=== PATIENT | male | born 1975 | race Two or more races ===

== ENCOUNTER 2018-10-17 00:07 | Observation (INO) | payer SELFPAY ==
[2018-10-17] VITALS (8 sets, daily range): BP systolic 111–146; BP diastolic 69–104; PULSE 70–114; RESP 16–20; TEMP 36.7–36.8; O2SAT 94–97; BMI 30.7; BMI 29.6
--- NOTE | 2018-10-17 00:08 | ED.RN ---
CALLED FOR EKG PER RN REQUEST, NO OLD EKGS IN MUSE
--- NOTE | 2018-10-17 00:22 | RAD_ITS ---
HISTORY: CHEST PAIN THAT STARTED YESTERDAY.C/O NAUSEA AFTER DRINKING LOTS OF FLUID EXAM: XR Chest 1 View: Portable COMPARISON: CT abdomen and pelvis 02/26/2017 FINDINGS: EKG leads in place. Limited portable exam with expiratory phase. Elevation of the right and left hemidiaphragms with hypoaeration and atelectasis of the lung bases. The heart appears normal in size. Pulmonary vascularity shows no overt congestion. No significant pleural effusion. No pneumothorax. The bony thorax appears intact. Prominent gas-filled stomach. RAD/Chest 1 View (Portable) IMPRESSION: 1. Limited expiratory phase exam with bibasilar hypoaeration and atelectatic change 2. No vascular congestion or pulmonary edema identified. 3. Gas-filled stomach. at 0056 Reported and signed by: Mulugeta Hayward MD Electronically Signed: Mulugeta Hayward, at 0:54 EST Tel , Service support ,
--- NOTE | 2018-10-17 00:22 | EKG12_ITS ---
Test Reason : CP Blood Pressure : / mmHG Vent. Rate : 112 BPM Atrial Rate : 112 BPM P-R Int : 158 ms QRS Dur : 090 ms QT Int : 332 ms P-R-T Axes : 032 019 036 degrees QTc Int : 453 ms Sinus tachycardia Otherwise normal ECG Confirmed by ANDRZEJ SPRINGER, MITA ([id number]), features editor FREDERIC TIPTON ([id number]) on 10/20/2018 10:44:57 AM Referred By: Confirmed By:MITA DONNELLY MD
--- NOTE | 2018-10-17 00:23 | ED.VISSUMM ---
- ER Visit Summary Date of Service: 10/17/18 Chief Complaint: Chest pain History of Present Illness: The patient is a 43 M presenting with chest pain. Patient states this started last night. He has had intermittent waxing and waning chest pain today. It is associated with shortness of breath. He has had a mild cough. He denies nausea or vomiting. Denies diaphoresis. He did have travel to both [place] and [place] within the last 2 weeks. He denies other PE/DVT risk factors. He states the pain worsened with exertion today. He has a family history of early heart disease. Denies other CAD risk factors. Physical Examination: Vitals are stable. Patient is afebrile. Alert no acute distress. HEENT exam is unremarkable. Neck is supple. Lungs are clear and equal bilaterally. Heart is regular rate and rhythm. Abdomen is soft nontender nondistended. Extremities are unremarkable. Skin is warm and dry. No focal neurologic deficit. Remainder of exam is unremarkable. Emergency Department Course and Treatment: Patient was given aspirin on arrival. He was given morphine Zofran IV. EKG sinus tachycardia rate of 112. CBC shows white count 12.8. Chemistries show glucose 243. Troponin is negative. D-dimer negative. Chest xray shows limited expiratory phase exam with bibasilar hypoaeration and atelectatic change. No vascular congestion or pulmonary edema identified. Gas-filled stomach. Patient had exertional chest pain. He is pain-free on reevaluation. Discussed with the hospitalist for observation. Disposition: Observation Impression: Chest pain This note was generated with [employer] dictation software. It may contain incorrect words, spelling, and punctuation that were not noted in review of the chart prior to signing ED Disposition - Plan for ED Patient: Chief Complaint: Chest Pain
[2018-10-17] MEDS: Aspirin 81 MG TAB.CHEW 324 MG PO (00:33)
[2018-10-17] MEDS: Ondansetron 4 MG/2 ML Vial IV (00:34)
[2018-10-17] MEDS: Morphine 4 MG/ML Syringe IV (00:35)
[2018-10-17 00:37] LABS: Absolute Lymphocyte Count 3.03 X10^3/ul (0.83-4.51); Absolute Neutrophil Count 8.4 X10^3/uL (2.0-7.7); Basophil# 0.04 X10^3/uL; Basophil% 0.3 % (0-1); Eosinophil# 0.16 X10^3/uL; Eosinophils% 1.3 % (0-5); Hematocrit 47.3 % (40-54); Hemoglobin 16.3 g/dl (13.0-16.5); Lymphocyte # 3.03 X10^3/ul (4.0); Lymphocyte % 23.7 % (19-41); Mean Corp Hgb Conc 34.5 g/gl (32-36); Mean Corpuscular Hgb 29.6 pg (27.0-32.0); Mean Corpuscular Volume 85.8 fL (80-94); Mean Platelet Vol. 9.1 fl (6.2-12.0); Monocyte# 1.08 X10^3/uL; Monocyte% 8.5 % (0-10); Neutrophil # 8.42 X10^3/uL (2.7-7.7); Neutrophil % 65.8 % (47-70); Platelet Count 378 K/mm3 (150-450); RBC Distribution Width CV 13.3 % (11.6-14.6); RBC Distribution Width SD 41.9 fl (35.1-43.9); Red Blood Count 5.51 M/mm3 (4.6-6.2); White Blood Count 12.8 K/mm3 (4.4-11.0)
[2018-10-17 00:39] LABS: POSITIVE COUNT NO; POSITIVE DIFFERENTIAL NO; POSITIVE MORPHOLOGY NO
[2018-10-17 00:43] LABS: Anion Gap 7 (5-15); BUN 7 mg/dL (7-18); BUN/Creat Ratio 6.9 RATIO (10-20); Calcium,Total 9.4 mg/dL (8.5-10.1); Chloride 104 mmol/L (98-107); Creatinine, Serum 1.01 mg/dL (0.70-1.30); EST Glomerular Filtration Rate 86 mL/min (>60); Est Glom Filt Rate - Afr Amer 104 mL/min (>60); Estimated Creatinine Clearance 101.48 ml/min; Glucose 243 mg/dL (74-106); Potassium 3.5 mmol/L (3.5-5.1); Sodium Level 140 mmol/L (136-145)
[2018-10-17 00:58] LABS: D-Dimer Quantitative (DVT/PE) < 0.27 FEU/ug/m (0.27-0.49)
--- NOTE | 2018-10-17 01:32 | PCM.HP.STD ---
Problem List (1) Chest pain Status: Acute Qualifiers: Chest pain type: unspecified Qualified Code(s): R07.9 - Chest pain, unspecified History of Present Illness Date of Admission: 10/17/18 Chief Complaint: chest pain The patient is a 43 year old male who presents to the ER with chest pain. This occurred last evening when he was going to bed and the pain was on the left side of his chest and did not radiate anywhere. The pain is not reproducible and is made worse with deep inspiration. He does feel short of breath but denies nausea and or vomiting. The patient has travelled in the past two weeks however, D-Dimer is negative at this time. The pain has been made worse with exertion. He has a family history of heart disease (paternal). He denies other coronary risk factors but admits he does not follow with a PCP. Past Medical History Allergies No Known Allergies Allergy (Verified 10/17/18 00:12) Home Medications: Ambulatory Orders Medication Instructions Recorded NK 10/17/18 Smoking Status: Never smoker - *Family History Paternal History Items: Heart Disease Review of Systems Constitutional: Denies: Chills, Fever, Weight Change HEENT: Denies: Head Aches, Sinus Congestion, Sinus Drainage Cardiovascular: Reports: Chest Pain. Denies: Palpitations Respiratory: Reports: Shortness of Breath. Denies: Cough, Shortness of breath at rest, Sputum production Gastrointestinal: Denies: Abdominal Pain, Nausea, Vomiting Genitourinary: Denies: Dysuria Musculoskeletal: Denies: Joint Pain, Joint Tenderness Skin: Denies: Rash, Wounds Neurological: Denies: Numbness, Tingling, Focal weakness Psychiatric: Denies: Anxiety, Depression, Homicidal Ideations, Suicidal Ideations Hematologic/ Lymphatic: Denies: Easy Bruising, Easy Bleeding VTE Information - Inpt Only VTE Present on Admission: No VTE Mechan Device Prophylaxis: None VTE Pharm Prophylaxis ordered?: No Patient Problems: Active and Suspected Problems Chest pain (Acute) - Physical Exam General: Alert, Oriented x3, Cooperative HEENT: Atraumatic, Normocephalic Neck: Supple Lungs: Clear to auscultation, Normal air movement Cardiovascular: Regular rate, Regular Rhythm, Normal S1, Normal S2, No murmurs Abdomen: Bowel Sounds Present Extremities: No edema Skin: No rashes Musculoskeletal: No Tenderness to Palpation of Joints or Extremities Neurological: Neuro grossly intact Psych/Mental Status: Normal Affect, Appropriate Vital Signs Temp Pulse Resp BP Pulse Ox 98.2 F 97 20 H 139/101 H 97 10/17/18 00:08 10/17/18 01:08 10/17/18 01:08 10/17/18 01:08 10/17/18 01:08 Oxygen Flow Rate (L/min) 2 Oxygen Delivery Method Nasal Cannula Weight: 219 lb 12.814 oz Body Mass Index (BMI) 30.7 Laboratory Tests Past 24 Hrs 10/17/18 10/17/18 10/17/18 00:13 00:13 00:13 WBC 12.8 H RBC 5.51 Hgb 16.3 Hct 47.3 MCV 85.8 MCH 29.6 MCHC 34.5 RDW 13.3 RDW Differential 41.9 Plt Count 378 MPV 9.1 Immature Gran % (Auto) 0.400 Neut % (Auto) 65.8 Lymph % (Auto) 23.7 [place] % (Auto) 8.5 Eos % (Auto) 1.3 Baso % (Auto) 0.3 Absolute Neuts (auto) 8.4 H Absolute Lymphs (auto) 3.03 Total Counted Not Reportable D-Dimer Quant (PE/DVT) < 0.27 L Sodium 140 Potassium 3.5 Chloride 104 Carbon Dioxide 29.0 Anion Gap 7 BUN 7 Creatinine 1.01 Estim Creat Clear Calc 101.48 Est GFR (MDRD) Af Amer 104 Est GFR (MDRD) Non-Af 86 BUN/Creatinine Ratio 6.9 L Glucose 243 H Calcium 9.4 Troponin I < 0.015 Assessment/Plan All Active Problems Chest pain (Acute) Plan 1. Chest Pain - admit to PCU for observation, cycle cardiac enzyme, morphine 2mg IV q 2 hrs prn, oxygen prn, nitroglycerin prn and aspirin per routine. Plan nuclear exercise stress test in am. 2. DVT prophylaxis- Patient is ambulatory and low risk for DVT with negative D-Dimer at this time therefore no LMWH or SCDs at this time No other complaints at this time. Consider other etiologies for this pain if stress test is negative Code Visit OBSV E&M: 15816 Initial observation care L2
--- NOTE | 2018-10-17 01:36 | HP.PCM_ITS ---
Problem List (1) Chest pain Status: Acute Qualifiers: Chest pain type: unspecified Qualified Code(s): R07.9 - Chest pain, unspecified History of Present Illness Date of Admission: 10/17/18 Chief Complaint: chest pain The patient is a 43 year old male who presents to the ER with chest pain. This occurred last evening when he was going to bed and the pain was on the left side of his chest and did not radiate anywhere. The pain is not reproducible and is made worse with deep inspiration. He does feel short of breath but denies nausea and or vomiting. The patient has travelled in the past two weeks however, D- Dimer is negative at this time. The pain has been made worse with exertion. He has a family history of heart disease (paternal). He denies other coronary risk factors but admits he does not follow with a PCP. Past Medical History Allergies No Known Allergies Allergy (Verified 10/17/18 00:12) Home Medications: Ambulatory Orders Medication Instructions Recorded NK 10/17/18 Smoking Status: Never smoker - *Family History Paternal History Items: Heart Disease Review of Systems Constitutional: Denies: Chills, Fever, Weight Change HEENT: Denies: Head Aches, Sinus Congestion, Sinus Drainage Cardiovascular: Reports: Chest Pain. Denies: Palpitations Respiratory: Reports: Shortness of Breath. Denies: Cough, Shortness of breath at rest, Sputum production Gastrointestinal: Denies: Abdominal Pain, Nausea, Vomiting Genitourinary: Denies: Dysuria Musculoskeletal: Denies: Joint Pain, Joint Tenderness Skin: Denies: Rash, Wounds Neurological: Denies: Numbness, Tingling, Focal weakness Psychiatric: Denies: Anxiety, Depression, Homicidal Ideations, Suicidal Ideations Hematologic/ Lymphatic: Denies: Easy Bruising, Easy Bleeding VTE Information - Inpt Only VTE Present on Admission: No VTE Mechan Device Prophylaxis: None VTE Pharm Prophylaxis ordered?: No Patient Problems: Active and Suspected Problems Chest pain (Acute) - Physical Exam General: Alert, Oriented x3, Cooperative HEENT: Atraumatic, Normocephalic Neck: Supple Lungs: Clear to auscultation, Normal air movement Cardiovascular: Regular rate, Regular Rhythm, Normal S1, Normal S2, No murmurs Abdomen: Bowel Sounds Present Extremities: No edema Skin: No rashes Musculoskeletal: No Tenderness to Palpation of Joints or Extremities Neurological: Neuro grossly intact Psych/Mental Status: Normal Affect, Appropriate Vital Signs Temp Pulse Resp BP Pulse Ox 98.2 F 97 20 H 139/101 H 97 10/17/18 00:08 10/17/18 01:08 10/17/18 01:08 10/17/18 01:08 10/17/18 01:08 Oxygen Flow Rate (L/min) 2 Oxygen Delivery Method Nasal Cannula Weight: 219 lb 12.814 oz Body Mass Index (BMI) 30.7 Laboratory Tests Past 24 Hrs 10/17/18 10/17/18 10/17/18 00:13 00:13 00:13 WBC 12.8 H RBC 5.51 Hgb 16.3 Hct 47.3 MCV 85.8 MCH 29.6 MCHC 34.5 RDW 13.3 RDW Differential 41.9 Plt Count 378 MPV 9.1 Immature Gran % (Auto) 0.400 Neut % (Auto) 65.8 Lymph % (Auto) 23.7 [place] % (Auto) 8.5 Eos % (Auto) 1.3 Baso % (Auto) 0.3 Absolute Neuts (auto) 8.4 H Absolute Lymphs (auto) 3.03 Total Counted Not Reportable D-Dimer Quant (PE/DVT) < 0.27 L Sodium 140 Potassium 3.5 Chloride 104 Carbon Dioxide 29.0 Anion Gap 7 BUN 7 Creatinine 1.01 Estim Creat Clear Calc 101.48 Est GFR (MDRD) Af Amer 104 Est GFR (MDRD) Non-Af 86 BUN/Creatinine Ratio 6.9 L Glucose 243 H Calcium 9.4 Troponin I < 0.015 Assessment/Plan All Active Problems Chest pain (Acute) Plan 1. Chest Pain - admit to PCU for observation, cycle cardiac enzyme, morphine 2mg IV q 2 hrs prn, oxygen prn, nitroglycerin prn and aspirin per routine. Plan nuclear exercise stress test in am. 2. DVT prophylaxis- Patient is ambulatory and low risk for DVT with negative D- Dimer at this time therefore no LMWH or SCDs at this time No other complaints at this time. Consider other etiologies for this pain if stress test is negative Code Visit OBSV E&M: 51339 Initial observation care L2
--- NOTE | 2018-10-17 02:10 | EKG12_ITS ---
Test Reason : CP ADMIT Blood Pressure : / mmHG Vent. Rate : 093 BPM Atrial Rate : 093 BPM P-R Int : 146 ms QRS Dur : 096 ms QT Int : 378 ms P-R-T Axes : 022 026 024 degrees QTc Int : 469 ms Normal sinus rhythm Normal ECG Confirmed by REBECA SPRINGER, KI ([id number]), editor trade journal FREDERIC TIPTON ([id number]) on 10/20/2018 11:37:15 AM Referred By: DR ARCHULETA Confirmed By:KI JOSE MD
[2018-10-17 07:02] LABS: Partial Thromboplast Time 32.4 Seconds (24.1-36.2)
[2018-10-17 07:14] LABS: AST(SGOT) 17 U/L (15-37); Alanine Aminotransfer ALT/SGPT 38 U/L (16-61); Albumin, Serum 3.4 g/dL (3.2-5.0); Alkaline Phosphatase 116 U/L (45-117); Anion Gap 10 (5-15); BUN 7 mg/dL (7-18); BUN/Creat Ratio 8.3 RATIO (10-20); Calcium,Total 8.6 mg/dL (8.5-10.1); Chloride 109 mmol/L (98-107); Cholesterol 178 mg/dL (200); Creatinine, Serum 0.85 mg/dL (0.70-1.30); EST Glomerular Filtration Rate 105 mL/min (>60); Est Glom Filt Rate - Afr Amer 127 mL/min (>60); Estimated Creatinine Clearance 120.58 ml/min; Globulin 3.3 g/dL (2.2-4.2); Glucose 86 mg/dL (74-106); High Density Lipoprotein 27 mg/dL; Potassium 3.7 mmol/L (3.5-5.1); Protein, Total 6.7 g/dL (6.4-8.2); Sodium Level 146 mmol/L (136-145); Triglycerides 137 mg/dL; Very Low Density Lipoprotein 27 mg/dL (5-40)
[2018-10-17 07:15] LABS: Hemoglobin A1c 7.5 % (4.2-6.3)
--- NOTE | 2018-10-17 14:02 | DCINST_ITS ---
- Discharge Diagnoses Current Active Problems: Current Active and Chronic Problems Chest pain (Acute) You will use the following diet at home:: Calorie/Carbohydrate Controlled (specify 1200, 1400, etc) Discharge Activity: Return to Normal Activity Call your doctor if you observe: Shortness of breath, Dizziness, Fainting spells, Chest pain Allergies/Adverse Reactions: Allergies No Known Allergies Allergy (Verified 10/17/18 00:12) Medications to take at Discharge Metformin(XR) [Glucophage Xr] 500 mg PO DAILY #30 tablet 10/17/18 The following prescriptions were given: Metformin(XR) [Glucophage Xr] 500 mg PO DAILY #30 tablet Primary Care Physician: Care Physician,No Primary [NON-STAFF] - Please follow up with your Primary Care Physician in: 1 Week Test Results: Test results from this visit will be discussed in further detail at your follow- up appointment, if applicable. Proposed Discharge Date: 10/17/18
--- NOTE | 2018-10-17 14:15 | DS.PCM_ITS ---
<Charisma Ponce - Last Filed: 10/17/18 14:16> Discharge Date and Diagnosis - Problem List Patient Problems: Active and Suspected Problems Chest pain (Acute) Date of Admission: 10/17/18 Date of Discharge: 10/17/18 - Primary Discharge Diagnosis Active and Suspected Problems 1. Musculoskeletal chest pain 2. New diagnosis type 2 diabetes mellitus Hospital Course and Treatment Imaging Results: Diagnostic Data Chest X-Ray 10/17/18 00:22 IMPRESSION: 1. Limited expiratory phase exam with bibasilar hypoaeration and atelectatic change 2. No vascular congestion or pulmonary edema identified. 3. Gas-filled stomach. at 0056 Reported and signed by: Mulugeta Hayward MD Electronically Signed: Mulugeta Hayward, at 0:54 EST Tel , Service support , Operations: None Procedures: Stress test Summary of Care Provided: The patient is a 43 year old M who presents emergency room due to left-sided chest pain. Patient describes left-sided pain with movement. EKG without ST-T changes. Troponin negative. Patient underwent nuclear stress test which was negative for ischemia. D-dimer unremarkable. Chest x-ray without acute process. Patient's glucose on admission noted to be 243. Hemoglobin A1c 7.5%. Patient has no prior history of diabetes. He reports he has a family history of diabetes in his mother. He was started on metformin 500 mg daily. He will follow-up with primary care physician for further monitoring and adjustment of medications. Pain suspected to be musculoskeletal in nature given reproducible with movement. Instructed pain he can use ibuprofen as needed for pain. Follow-up with primary care physician in 1 week. General: Alert, Oriented x3, Cooperative HEENT: Atraumatic, Normocephalic Neck: Supple, trachea midline, no JVD Lungs: Clear to auscultation, Normal air movement Cardiovascular: Regular rate, Regular Rhythm, Normal S1, Normal S2, No murmurs Abdomen: Bowel Sounds Present, nondistended, nontender Extremities: No edema Skin: No rashes Musculoskeletal: No Tenderness to Palpation of Joints or Extremities Neurological: Neuro grossly intact Psych/Mental Status: Normal Affect, Appropriate Patient seen and examined prior to discharge. Physical assessment as noted above. Patient is stable for discharge with follow up recommendations as noted above. This patient was seen by BHUMIKA Fowler under the supervision of Dr. Macias. Patient Problems: Active and Suspected Problems Chest pain (Acute) - Physical Exam Vital Signs Temp Pulse Resp BP Pulse Ox 98.1 F 84 16 111/69 94 10/17/18 06:32 10/17/18 11:17 10/17/18 06:32 10/17/18 06:32 10/17/18 06:32 Oxygen Flow Rate (L/min) 2 Oxygen Delivery Method Room Air Weight: 212 lb 8.41 oz Body Mass Index (BMI) 29.6 Intake and Output for Last 24 Hours 10/15/18 10/16/18 10/17/18 23:59 23:59 23:59 Intake Total 300 / 300 Output Total 0 / 0 Balance 300 / 300 Laboratory Tests Past 24 Hrs 10/17/18 10/17/18 10/17/18 00:13 00:13 00:13 WBC 12.8 H RBC 5.51 Hgb 16.3 Hct 47.3 MCV 85.8 MCH 29.6 MCHC 34.5 RDW 13.3 RDW Differential 41.9 Plt Count 378 MPV 9.1 Immature Gran % (Auto) 0.400 Neut % (Auto) 65.8 Lymph % (Auto) 23.7 [place] % (Auto) 8.5 Eos % (Auto) 1.3 Baso % (Auto) 0.3 Absolute Neuts (auto) 8.4 H Absolute Lymphs (auto) 3.03 Total Counted Not Reportable PT INR APTT D-Dimer Quant (PE/DVT) < 0.27 L Sodium 140 Potassium 3.5 Chloride 104 Carbon Dioxide 29.0 Anion Gap 7 BUN 7 Creatinine 1.01 Estim Creat Clear Calc 101.48 Est GFR (MDRD) Af Amer 104 Est GFR (MDRD) Non-Af 86 BUN/Creatinine Ratio 6.9 L Glucose 243 H Hemoglobin A1c Calcium 9.4 Total Bilirubin AST ALT Alkaline Phosphatase Troponin I < 0.015 Total Protein Albumin Globulin Albumin/Globulin Ratio Triglycerides Cholesterol LDL Cholesterol VLDL Cholesterol HDL Cholesterol 10/17/18 10/17/18 10/17/18 03:20 06:07 06:07 WBC RBC Hgb Hct MCV MCH MCHC RDW RDW Differential Plt Count MPV Immature Gran % (Auto) Neut % (Auto) Lymph % (Auto) [place] % (Auto) Eos % (Auto) Baso % (Auto) Absolute Neuts (auto) Absolute Lymphs (auto) Total Counted PT INR APTT D-Dimer Quant (PE/DVT) Sodium 146 H Potassium 3.7 Chloride 109 H Carbon Dioxide 27.0 Anion Gap 10 BUN 7 Creatinine 0.85 Estim Creat Clear Calc 120.58 Est GFR (MDRD) Af Amer 127 Est GFR (MDRD) Non-Af 105 BUN/Creatinine Ratio 8.3 L Glucose 86 Hemoglobin A1c 7.5 H Calcium 8.6 Total Bilirubin 0.40 AST 17 ALT 38 Alkaline Phosphatase 116 Troponin I < 0.015 < 0.015 Total Protein 6.7 Albumin 3.4 Globulin 3.3 Albumin/Globulin Ratio 1.0 Triglycerides 137 Cholesterol 178 LDL Cholesterol 124 VLDL Cholesterol 27 HDL Cholesterol 27 L 10/17/18 06:07 WBC RBC Hgb Hct MCV MCH MCHC RDW RDW Differential Plt Count MPV Immature Gran % (Auto) Neut % (Auto) Lymph % (Auto) [place] % (Auto) Eos % (Auto) Baso % (Auto) Absolute Neuts (auto) Absolute Lymphs (auto) Total Counted PT 13.0 INR 1.0 APTT 32.4 D-Dimer Quant (PE/DVT) Sodium Potassium Chloride Carbon Dioxide Anion Gap BUN Creatinine Estim Creat Clear Calc Est GFR (MDRD) Af Amer Est GFR (MDRD) Non-Af BUN/Creatinine Ratio Glucose Hemoglobin A1c Calcium Total Bilirubin AST ALT Alkaline Phosphatase Troponin I Total Protein Albumin Globulin Albumin/Globulin Ratio Triglycerides Cholesterol LDL Cholesterol VLDL Cholesterol HDL Cholesterol Discharge Diet: Carb Control Diet Discharge Activity: Return to Normal Activity Call your doctor if you observe: Shortness of breath, Dizziness, Fainting spells, Chest pain Home Medications: Medications to take at Discharge Metformin(XR) [Glucophage Xr] 500 mg PO DAILY #30 tablet 10/17/18 Following Prescrptions Were Given to Patient: Metformin(XR) [Glucophage Xr] 500 mg PO DAILY #30 tablet Please Follow Up With: Dana Remy MD When: 1 Week Disposition: Home Minutes spent on discharge:: 35 Patient Condition:: Stable Medical Necessity - Tobacco Use Smoking Status: Never smoker Tobacco Use: Chew Meaningful Use Info Meaningful Use Diagnoses (Choose all that apply): None applicable <Julian Macias - Last Filed: 10/17/18 15:00> Hospital Course and Treatment Operations: None Procedures: Stress test Summary of Care Provided: Patient seen and examined independently. Data reviewed. I agree with the above note by the nurse practitioner. The patient is a 43 year old M presents with left-sided chest pain. Chest pain was worse with deep inspirations and cough. Patient denied any recent trauma nor lifting any heavy objects. Pain was reproducible on exam. Patient underwent stress test that was normal as well as a d-dimer was normal. Is feeling of the patient's chest pain was musculoskeletal in etiology. Patient will be discharged home. [] - Physical Exam General: Alert, No apparent distress HEENT: Atraumatic, Normocephalic Oral: Moist Mucosa, No Gingival or Mucosal Lesions/ Ulcerations Musculoskeletal: - - reproducible left chest wall tenderness. Vital Signs Temp Pulse Resp BP Pulse Ox 36.7 C 78 16 124/84 H 94 10/17/18 12:32 10/17/18 12:32 10/17/18 12:32 10/17/18 12:32 10/17/18 12:32 Oxygen Flow Rate (L/min) 2 Oxygen Delivery Method Room Air Weight: 96.4 kg Body Mass Index (BMI) 29.6 Intake and Output for Last 24 Hours 10/15/18 10/16/18 10/17/18 23:59 23:59 23:59 Intake Total 300 / 300 Output Total 0 / 0 Balance 300 / 300 Laboratory Tests Past 24 Hrs 10/17/18 10/17/18 10/17/18 00:13 00:13 00:13 WBC 12.8 H RBC 5.51 Hgb 16.3 Hct 47.3 MCV 85.8 MCH 29.6 MCHC 34.5 RDW 13.3 RDW Differential 41.9 Plt Count 378 MPV 9.1 Immature Gran % (Auto) 0.400 Neut % (Auto) 65.8 Lymph % (Auto) 23.7 [place] % (Auto) 8.5 Eos % (Auto) 1.3 Baso % (Auto) 0.3 Absolute Neuts (auto) 8.4 H Absolute Lymphs (auto) 3.03 Total Counted Not Reportable PT INR APTT D-Dimer Quant (PE/DVT) < 0.27 L Sodium 140 Potassium 3.5 Chloride 104 Carbon Dioxide 29.0 Anion Gap 7 BUN 7 Creatinine 1.01 Estim Creat Clear Calc 101.48 Est GFR (MDRD) Af Amer 104 Est GFR (MDRD) Non-Af 86 BUN/Creatinine Ratio 6.9 L Glucose 243 H Hemoglobin A1c Calcium 9.4 Total Bilirubin AST ALT Alkaline Phosphatase Troponin I < 0.015 Total Protein Albumin Globulin Albumin/Globulin Ratio Triglycerides Cholesterol LDL Cholesterol VLDL Cholesterol HDL Cholesterol 10/17/18 10/17/18 10/17/18 03:20 06:07 06:07 WBC RBC Hgb Hct MCV MCH MCHC RDW RDW Differential Plt Count MPV Immature Gran % (Auto) Neut % (Auto) Lymph % (Auto) [place] % (Auto) Eos % (Auto) Baso % (Auto) Absolute Neuts (auto) Absolute Lymphs (auto) Total Counted PT INR APTT D-Dimer Quant (PE/DVT) Sodium 146 H Potassium 3.7 Chloride 109 H Carbon Dioxide 27.0 Anion Gap 10 BUN 7 Creatinine 0.85 Estim Creat Clear Calc 120.58 Est GFR (MDRD) Af Amer 127 Est GFR (MDRD) Non-Af 105 BUN/Creatinine Ratio 8.3 L Glucose 86 Hemoglobin A1c 7.5 H Calcium 8.6 Total Bilirubin 0.40 AST 17 ALT 38 Alkaline Phosphatase 116 Troponin I < 0.015 < 0.015 Total Protein 6.7 Albumin 3.4 Globulin 3.3 Albumin/Globulin Ratio 1.0 Triglycerides 137 Cholesterol 178 LDL Cholesterol 124 VLDL Cholesterol 27 HDL Cholesterol 27 L 10/17/18 06:07 WBC RBC Hgb Hct MCV MCH MCHC RDW RDW Differential Plt Count MPV Immature Gran % (Auto) Neut % (Auto) Lymph % (Auto) [place] % (Auto) Eos % (Auto) Baso % (Auto) Absolute Neuts (auto) Absolute Lymphs (auto) Total Counted PT 13.0 INR 1.0 APTT 32.4 D-Dimer Quant (PE/DVT) Sodium Potassium Chloride Carbon Dioxide Anion Gap BUN Creatinine Estim Creat Clear Calc Est GFR (MDRD) Af Amer Est GFR (MDRD) Non-Af BUN/Creatinine Ratio Glucose Hemoglobin A1c Calcium Total Bilirubin AST ALT Alkaline Phosphatase Troponin I Total Protein Albumin Globulin Albumin/Globulin Ratio Triglycerides Cholesterol LDL Cholesterol VLDL Cholesterol HDL Cholesterol Discharge Diet: Carb Control Diet Discharge Activity: Return to Normal Activity Call your doctor if you observe: Shortness of breath, Dizziness, Fainting spells, Chest pain Disposition: Home Patient Condition:: Stable Meaningful Use Info Meaningful Use Diagnoses (Choose all that apply): None applicable Code Visit OBSV E&M: 02055 Observation care discharge
--- NOTE | 2018-10-17 14:32 | STRESSREP_ITS ---
Stress Test Report Date: 10/17/2018 Procedure: Exercise tolerance test/imaging study Indications: Chest pain Consent: Per the patient Procedure: The patient exercised on a Johnny protocol for 7 minutes and 40 seconds completing Stage II and 1 minute and 40 seconds of Stage III achieving a peak heart rate of 162 bpm (91 % predicted maximal heart rate) with a peak blood pressure 164/92 mmHg and a peak MET capacity of 9 METs. The baseline ECG demonstrated sinus rhythm. The peak exercise ECG demonstrated attic/motion artifact with no obvious ECG changes. [There were no cardiac dysrhythmias pretest, during exercise, or recovery]. The functional capacity was considered average. There was [no complaint of chest discomfort during exercise or recovery]. The examination was discontinued secondary to dyspnea. Impression: 1. Technically adequate (percent predicted maximal heart rate greater than 85%) exercise tolerance test 2. Peak exercise ECG with no obvious ECG changes 3. [There were no cardiac dysrhythmias pretest, during exercise, or recovery] 4. Nuclear images pending Myocardial perfusion imaging study: Technique: The patient was injected with 11.1 mCi of technetium 99m Cardiolite and subsequently rest SPECT Cardiolite nuclear imaging was obtained in the horizontal long, vertical long, and short axis views. The patient exercised on a Johnny protocol for 7 minutes and 40 seconds completing Stage II and 1 minute 40 seconds of Stage III achieving a peak heart rate of 162 bpm (91 % predicted maximal heart rate) with a peak blood pressure 164/92 mmHg and a peak MET capacity of 9 METs. The patient was injected with 32.5 mCi of technetium 99m Cardiolite and subsequently stress SPECT Cardiolite nuclear imaging was obtained in the horizontal long, vertical long, and short axis views. A gated Cardiolite study at peak stress was obtained. Interpretation: Rest and stress SPECT Cardiolite nuclear imaging status post realignment, normalization, and attenuation correction, demonstrates [the appearance of relative uniform tracer uptake and myocardial perfusion appearing within normal limits]. [There is end systolic thickening and brightening]. The gated Cardiolite study demonstrates [myocardial thickening and inward wall motion]. The reported LVEF is 83 %. Impression: 1. Rest and stress SPECT Cardiolite nuclear imaging demonstrate [relative uniform tracer uptake and myocardial perfusion appearing within normal limits]. 2. The gated Cardiolite study reports an LVEF of 83 %. This note was generated with [employer] software. It may contain incorrect words, spelling, and punctuation that were not noted in checking the note before signing.
--- OUTSIDE RECORDS SUMMARY | 2018-12-03 03:49 | XMS RPT_ITS ---
:1975 Author Organization [facility] Care Team Providers Name Role Phone PODLOGARJANEEN (JOSIAH) Attending Unavailable PODLOGARJANEEN (JOSIAH) Referring Unavailable JORGE, DANA Attending Unavailable DANA PATEL Referring Unavailable Ganga Jose Attending Unavailable Julian Macias Referring Unavailable GrovesGanga Attending Unavailable Ganta, Dana Primary Care Unavailable Ganga Groves Admitting Unavailable Ganta, Dana Primary Care Unavailable Julian Macias Attending Unavailable PROBLEMS PROBLEMS DATE TYPE CONDITION / CODE ATTENDING STATUS SOURCE 10/20/2018 Active Pleurisy / NA Active [facility] R09.1(ICD-10) [facility] [place] Repository 11/08/2018 Unknown R07.9 - Chest pain, Ganga Jose Active [facility] unspecified / Community R07.9(ICD-10) Hospital Repository 11/29/2017 Active Other symptoms and NA Active [facility] signs involving the Main [place] genitourinary Repository system / R39.89(ICD-10) PROCEDURES PROCEDURES No Procedure Records FoundRESULTS RESULTS CT CHEST W IVCON Observed: 10/20/2018 Status: F Source: [place] 4:02 PM [facility] REPOSITORY * * *Final Report* * * DATE OF EXAM: Oct 20 2018 4:02PM [facility] 0539 - CT CHEST W IVCON / PROCEDURE REASON: Pleurisy * * * * Physician Interpretation * * * * EXAMINATION: CHEST CT WITH CONTRAST CLINICAL HISTORY: Pleurisy 43-year-old male Technique: Spiral CT acquisition of the chest from the thoracic inlet to the upper abdomen following IV contrast. MQ: CTCWR_5 Contrast: 50 mL Omnipaque [address] Dose-Length Product: 241 mGy*cm CT Dose Reduction Employed: Automated exposure control (AEC) Comparison: No relevant prior RESULT: Limitations: None. Lines, tubes, and devices: None. Lung parenchyma and pleura: No consolidation. Couple calcified left lower lobe granulomata (3:99, 3:64). No suspicious pulmonary nodule. Subsegmental atelectasis in the lower lobes. Mild dependent lower lobe atelectasis. No pleural effusion. Central airways are patent. Thoracic inlet, heart, and mediastinum: No lymphadenopathy in the axillary, mediastinal, or hilar regions. LAD atherosclerosis. Thoracic aorta and main pulmonary artery are normal in caliber. Cardiac chambers are normal in size. No pericardial effusion or thickening. Bones and soft tissues: No destructive bone lesion. No rib fracture is appreciated. Chest wall is unremarkable. Upper abdomen: Diffuse low attenuation of the visualized hepatic parenchyma with sparing at the gallbladder fossa. IMPRESSION: Bibasilar atelectasis. Hepatic steatosis. Age-advanced coronary artery atherosclerosis. Liquor Commissioner: CINDY Transcribe Date/Time: Oct 20 2018 4:23P Dictated by : CHARLIE CHAU MD This examination was interpreted and the report reviewed and electronically signed by: CHARLIE CHAU MD on Oct 20 2018 4:31PM EST [id number] PROGRESS Observed: 10/20/2018 Status: COMPLETED Source: [place] 3:46 PM [facility] REPOSITORY O ID: [id number] Author: Nabil Ybarra) SHAYAN Kaiser Service: (none) Author Type: Registered Nurse Type: Progress Notes Filed: 10/20/2018 4:13 PM Note Text: Radiology Service Progress Note PATIENT NAME: Sherwin Seymour DATE OF SERVICE: October 20, 2018 TIME: 4:12 PM PATIENT IDENTITY VERIFICATION COMPLETED USING TWO (2) METHODS: Patient confirmed name verbally and Date of . PATIENT GENDER DATA: Male PATIENT RELEVANT IMPLANT DATA REVIEWED: Not Applicable CONTRAST INDUCED NEPHROPATHY RISK FACTORS: Not applicable CREATININE: Creatinine Date Value Ref Range Status 11/29/2017 0.89 0.58 - 0.96 mg/dL Final eGFR-All Other Races Date Value Ref Range Status 11/29/2017 >60 . Final Comment: eGFR (Estimated GFR) Units of measure: mL/min/1.73 meters squared eGFR is derived from the reexpressed MDRD Study equation using the following parameters: serum creatinine, age, gender and race. The creatinine assay has been calibrated to be traceable to IDMS. An eGFR <60 mL/min/1.73m2 for >3 months is consistent with chronic kidney disease. Refer to KDOQI guidelines for clinical interpretation. In patients with unstable renal function, e.g. those with acute kidney injury, the eGFR may not accurately reflect actual GFR. eGFR- Date Value Ref Range Status 11/29/2017 >60 Final P.O.C.T. RESULTS: N/A October 20, 2018 RADIOLOGIST NOTIFIED?: No ALLERGIES: Reviewed and unchanged CONTRAST ALLERGY: NO. PERIPHERAL IV ACCESS: Ambulatory: IV type: Existing peripheral IV utilized, Site assessment: Clean,Dry and Intact, Site disposition Discontinued RADIOLOGY DEPARTMENT: CT; Exam(s) Completed: Chest SIGNED BY: OCTAVIANO Trinh October 20, 2018 4:12 PM Radiology Service Progress Note PATIENT NAME: Sherwin Seymour DATE OF SERVICE: October 20, 2018 TIME: 3:46 PM PATIENT WEIGHT: 215 LBS PATIENT IDENTITY VERIFICATION COMPLETED USING TWO (2) METHODS: Patient confirmed name verbally and Date of . PATIENT GENDER DATA: Male CONTRAST INDUCED NEPHROPATHY RISK FACTORS: Not applicable CREATININE: Creatinine Date Value Ref Range Status 11/29/2017 0.89 0.58 - 0.96 mg/dL Final eGFR-All Other Races Date Value Ref Range Status 11/29/2017 >60 . Final Comment: eGFR (Estimated GFR) Units of measure: mL/min/1.73 meters squared eGFR is derived from the reexpressed MDRD Study equation using the following parameters: serum creatinine, age, gender and race. The creatinine assay has been calibrated to be traceable to IDMS. An eGFR <60 mL/min/1.73m2 for >3 months is consistent with chronic kidney disease. Refer to KDOQI guidelines for clinical interpretation. In patients with unstable renal function, e.g. those with acute kidney injury, the eGFR may not accurately reflect actual GFR. eGFR- Date Value Ref Range Status 11/29/2017 >60 Final P.O.C.T. RESULTS: N/A October 20, 2018 TREATMENT: No Hydration needed. ALLERGIES: Reviewed and unchanged CONTRAST ALLERGY: NO. IV SITE: Ambulatory: A peripheral IV was started in the Right antecubital site with a Angio cath: 20 gauge. and A Saline lock was inserted per protocol IV SITE APPEARANCE: Clean,Dry and Intact SIGNED BY: NABIL KAISER RN October 20, 2018 3:46 PM 12 LEAD ELECTROCARDIOGRAM Observed: 10/20/2018 Status: F Source: [place] 11:37 AM [facility] Cardiovascular Services [address] [place] [id number] 12 Lead EKG 10/17/18 0234 MR#: [id number] Acct: [id number] Name: SHERWIN SEYMOUR Rep #: [id number] : 1975 43 From: Ganga Jose MD Attending Dr: Julian Macias DO Status: DIS KRISTYN Ordering Dr: Ganga Groves MD Date: 10/17/18 Location: [facility] Sex: M UTD Admitted: 10/17/18 Test Reason : CP ADMIT Blood Pressure : / mmHG Vent. Rate : 093 BPM Atrial Rate : 093 BPM P-R Int : 146 ms QRS Dur : 096 ms QT Int : 378 ms P-R-T Axes : 022 026 024 degrees QTc Int : 469 ms Normal sinus rhythm Normal ECG Confirmed by REBECA SPRINGER, GANGA ([id number]), manuscript editor FREDERIC TIPTON ([id number]) on 10/20/2018 11:37:15 AM Referred By: DR ARCHULETA Confirmed By:GANGA JOSE MD 10/20/18 1137 Date Ganga Jose MD CC: Dana Patel MD; Julian Macias DO; Ganga Groves MD Signed 12 LEAD ELECTROCARDIOGRAM Observed: 10/20/2018 Status: F Source: [place] 10:45 AM [facility] Cardiovascular Services [address] [place] [address] 12 Lead EKG 10/17/18 0012 MR#: [id number] Acct: [id number] Name: SHERWIN SEYMOUR Rep #: [id number] : 1975 43 From: Darek Cooley MD Attending Dr: Julian Macias DO Status: DIS KRISTYN Ordering Dr: Lindy Samaniego MD Date: 10/17/18 Location: [facility] Sex: M UTD Admitted: 10/17/18 Test Reason : CP Blood Pressure : / mmHG Vent. Rate : 112 BPM Atrial Rate : 112 BPM P-R Int : 158 ms QRS Dur : 090 ms QT Int : 332 ms P-R-T Axes : 032 019 036 degrees QTc Int : 453 ms Sinus tachycardia Otherwise normal ECG Confirmed by ANDRZEJ SPRINGER, DAREK ([id number]), manuscript editor FREDERIC TIPTON ([id number]) on 10/20/2018 10:44:57 AM Referred By: Confirmed By:DAREK COOLEY MD 10/20/18 1045 Date Darek Cooley MD CC: Lindy Samaniego MD; Dana Patel MD; Julian Macias DO Signed PROGRESS Observed: 10/18/2018 Status: COMPLETED Source: [place] 7:16 PM [facility] [place] REPOSITORY O ID: [id number] Author: Dana Patel Service: (none) Author Type: Physician Type: Progress Notes Filed: 10/18/2018 8:15 PM Note Text: Reason for Visit Patient presents with: Recheck: ER follow up, pain under L arm/rib, trouble breathing Sherwin Seymour is a 43 year old male who presents here today for Above Complaints.. Health Maintenance DTAP,TDAP,TD(1 - Tdap) LIPID SCREEN INFLUENZA(1) HPI Chest pain since 2 days he was going to bed and suddenly he got this pain, he could not tolerate the pain but took some pain killers and slept, the next day in the morning it was the same but in the evening, pain is constant but when he moves or talks it gets worse, he took some codeine for the pain which he had at home and it helped him, but at night it was worse he went to ER there he had stress test with nuclear imaging, exercise, he could exercise after getting a shot of morphine. Ddimer, chestxray, lipids were all normal White count was high at 12.8.. Kidney and liver was normal. 6 months ago he fell on the left side.. Never had been exposed to Tb, he had tb test last year and he was negative, last time he went to [facility] was 2003. No family history of of sle, rheumatoid, and psoriasis. No problem-specific Assessment AND Plan notes found for this encounter. No past medical history on file. No past surgical history on file. No family history on file. Social History Substance Use Topics - Smoking status: Never Smoker - Smokeless tobacco: Current User Types: Chew - Alcohol use 9.0 oz/week 3 Martini/Manhattan Drinks per week Past medical history, appointments, medications, allergies reviewed. Pertinent Lab/Diagnostic Studies are reviewed and discussed today No current outpatient prescriptions on file. Review of Systems CONSTITUTIONAL: No fevers, chills night sweats, unintended weight loss CARDIOVASCULAR: No chest pain, dyspnea, palpitations, orthopnea, PND, ankle edema. PULM: No dyspnea, unexplained cough. GI: No dysphagia/odynophagia, problematic reflux, constipation, diarrhea, changes in stool habits, hematochezia, melena. : No new urinary complaints, including dysuria, gross hematuria or pyuria. NEURO: No new balance problems, peripheral weakness/paresthesias or numbness of concern. Physical Exam BP 134/88 (BP Site: Left Arm, BP Position: Sitting, BP Cuff Size: Large Adult) Pulse 74 Temp 36.6 ?C (97.8 ?F) (Temporal Artery) Resp 16 Wt 97.5 kg (215 lb) SpO2 99% General appearance: Well appearing, alert, in no acute distress, well nourished. Skin: Skin color, texture, turgor normal, no suspicious rashes or lesions Head: Normocephalic, no masses, lesions, tenderness or abnormalities Eyes: Anicteric sclera. Pupils are equally round and reactive to light. Extraocular movements are intact. Lungs: Lungs clear to auscultation. No wheezing, rhonchi, rales Heart: RRR without murmur, gallop, or rubs. Extremities: No deformities, edema, skin discoloration, clubbing or cyanosis. Good capillary refill. ASSESSMENT/PLAN: 1. Pleurisy - ICD9: 511.0, ICD10: R09.1 His pain is classical for pleurisy but etiology is not clear. - HYDROCODONE 5 MG-ACETAMINOPHEN 325 MG TABLET - IBUPROFEN 200 MG CAPSULE - CT CHEST W IVCON - IV CONTRAST (RADIOLOGY PROCEDURE) DANA PATEL MD CNOV Observed: 10/18/2018 Status: COMPLETED Source: [place] 6:20 PM [facility] REPOSITORY Office Visit (INTMWS) SEYMOURSHERWIN ([id number]) 1975 M Date Time Provider Department 10/18/18 6:20 PM DANA PATEL INTMWS During your visit today, we recorded the following information about you: Temperature Pulse Respiration Blood pressure 97.8 degrees 74/minute 16/minute 134/88 Weight 97.5 kg DANA PATEL MD 10/18/2018 8:15 PM Signed Reason for Visit Patient presents with: Recheck: ER follow up, pain under L arm/rib, trouble breathing Sherwin Montielel is a 43 year old male who presents here today for Above Complaints.. Health Maintenance DTAP,TDAP,TD(1 - Tdap) LIPID SCREEN INFLUENZA(1) HPI Chest pain since 2 days he was going to bed and suddenly he got this pain, he could not tolerate the pain but took some pain killers and slept, the next day in the morning it was the same but in the evening, pain is constant but when he moves or talks it gets worse, he took some codeine for the pain which he had at home and it helped him, but at night it was worse he went to ER there he had stress test with nuclear imaging, exercise, he could exercise after getting a shot of morphine. Ddimer, chestxray, lipids were all normal White count was high at 12.8.. Kidney and liver was normal. 6 months ago he fell on the left side.. Never had been exposed to Tb, he had tb test last year and he was negative, last time he went to [place] was 2003. No family history of of sle, rheumatoid, and psoriasis. No problem-specific Assessment AND Plan notes found for this encounter. No past medical history on file. No past surgical history on file. No family history on file. Social History Substance Use Topics - Smoking status: Never Smoker - Smokeless tobacco: Current User Types: Chew - Alcohol use 9.0 oz/week 3 Martini/Manhattan Drinks per week Past medical history, appointments, medications, allergies reviewed. Pertinent Lab/Diagnostic Studies are reviewed and discussed today No current outpatient prescriptions on file. Review of Systems CONSTITUTIONAL: No fevers, chills night sweats, unintended weight loss CARDIOVASCULAR: No chest pain, dyspnea, palpitations, orthopnea, PND, ankle edema. PULM: No dyspnea, unexplained cough. GI: No dysphagia/odynophagia, problematic reflux, constipation, diarrhea, changes in stool habits, hematochezia, melena. : No new urinary complaints, including dysuria, gross hematuria or pyuria. NEURO: No new balance problems, peripheral weakness/paresthesias or numbness of concern. Physical Exam BP 134/88 (BP Site: Left Arm, BP Position: Sitting, BP Cuff Size: Large Adult) Pulse 74 Temp 36.6 ?C (97.8 ?F) (Temporal Artery) Resp 16 Wt 97.5 kg (215 lb) SpO2 99% General appearance: Well appearing, alert, in no acute distress, well nourished. Skin: Skin color, texture, turgor normal, no suspicious rashes or lesions Head: Normocephalic, no masses, lesions, tenderness or abnormalities Eyes: Anicteric sclera. Pupils are equally round and reactive to light. Extraocular movements are intact. Lungs: Lungs clear to auscultation. No wheezing, rhonchi, rales Heart: RRR without murmur, gallop, or rubs. Extremities: No deformities, edema, skin discoloration, clubbing or cyanosis. Good capillary refill. ASSESSMENT/PLAN: 1. Pleurisy - ICD9: 511.0, ICD10: R09.1 His pain is classical for pleurisy but etiology is not clear. - HYDROCODONE 5 MG-ACETAMINOPHEN 325 MG TABLET - IBUPROFEN 200 MG CAPSULE - CT CHEST W IVCON - IV CONTRAST (RADIOLOGY PROCEDURE) DANA PATEL MD Referring Provider: SELF [[id number]] Allergies As of Date: 10/18/2018 Noted Allergy Reaction TREE POLLEN (TREES) 11/29/2017 9 - Itching Date Reviewed: 10/18/2018 Reviewed by: Martha Godwin Ma - Fully Assessed Reason for Visit: Recheck [92] Cmt: ER follow up, pain under L arm/rib, trouble breathing Primary Visit Diagnosis:Pleurisy [R09.1] Order(s):HYDROcodone-acetaminophen (NORCO) 5-325 mg per tabletTake 1 tablet by mouth every 6 hours as needed for Pain for up to 7 days.Disp: 28 tabletRfl: 0 Ibuprofen 200 mg capTake 400 mgs 3 times a dayDisp: 100 capsuleRfl: 1 CT CHEST W IVCON [[id number]] Order #: [id number] FUTURE iv contrast (will be provided with radiology test)CT Chest W -Inject, intravenously, once for 1 dose.No IV access, insert saline lock prior to the beginning of sedation, infusion, injection of imaging exam. Discontinue saline lock post exam. If Pt. has a central line or IVAD, may access for administration according to line specific nursing protocol. Once exam is complete flush line and de- access according to line specific nursing protocol in the CT contrast administration guidelines link.Disp: 1 EachRfl: 0 Prescriptions as of 10/18/2018 Sig: HYDROCODONE 5 MG-ACETAMINOPHE* Take 1 tablet by mouth every * IBUPROFEN 200 MG CAPSULE Take 400 mgs 3 times a day IV CONTRAST (RADIOLOGY PROCED* CT Chest W -Inject, intraveno* Problem List As Of Date: 10/18/2018 (None) Prescriptions ordered this encounter Disp Refills Start End HYDROCODONE 5 MG-ACETAMINOPHEN 325 M* 28 t* 0 10/18/2018 10/25/2018 Class: Print RX Route: ORAL Sig: Take 1 tablet by mouth every 6 hours as needed for Pain for up to 7 days. IBUPROFEN 200 MG CAPSULE 100 * 1 10/18/2018 Class: Print RX Sig: Take 400 mgs 3 times a day IV CONTRAST (RADIOLOGY PROCEDURE) 1 Ea* 0 10/18/2018 10/19/2018 Class: In Office Sig: CT Chest W -Inject, intravenously, once for 1 dose.No IV access, insert saline lock prior to the beginning of sedation, infusion, injection of imaging exam. Discontinue saline lock post exam. If Pt. has a central line or IVAD, may access for administration according to line specific nursing protocol. Once exam is complete flush line and de-access according to line specific nursing protocol in the CT contrast administration guidelines link. Encounter Status:Closed by DANA PATEL MD on 10/18/18 DISCHARGE SUMMARY Observed: 10/17/2018 Status: F Source: [place] 3:01 PM [facility] Medical Records Department [address] [place], [place] [address] [address] Discharge Summary 10/17/18 1408 MR#: [id number] Acct: [id number] Name: SHERWIN SEYMOUR Rep #: [id number] : 1975 43 From: Charisma Ponce PROCESS ANALYST-C PCP: Dana Patel MD Status: ADM KRISTYN Y Location: [place] [address] <Charisma Ponce - Last Filed: 10/17/18 14:16> Discharge Date and Diagnosis - Problem List Patient Problems: Active and Suspected Problems Chest pain (Acute) Date of Admission: 10/17/18 Date of Discharge: 10/17/18 - Primary Discharge Diagnosis Active and Suspected Problems 1. Musculoskeletal chest pain 2. New diagnosis type 2 diabetes mellitus Hospital Course and Treatment Imaging Results: Diagnostic Data Chest X-Ray 10/17/18 00:22 IMPRESSION: 1. Limited expiratory phase exam with bibasilar hypoaeration and atelectatic change 2. No vascular congestion or pulmonary edema identified. 3. Gas-filled stomach. at 0056 Reported and signed by: Mulugeta Hayward MD Electronically Signed: Mulugeta Hayward, at 0:54 EST Tel , Service support , Operations: None Procedures: Stress test Summary of Care Provided: The patient is a 43 year old M who presents emergency room due to left-sided chest pain. Patient describes left-sided pain with movement. EKG without ST-T changes. Troponin negative. Patient underwent nuclear stress test which was negative for ischemia. D-dimer unremarkable. Chest x-ray without acute process. Patient's glucose on admission noted to be 243. Hemoglobin A1c 7.5%. Patient has no prior history of diabetes. He reports he has a family history of diabetes in his mother. He was started on metformin 500 mg daily. He will follow-up with primary care physician for further monitoring and adjustment of medications. Pain suspected to be musculoskeletal in nature given reproducible with movement. Instructed pain he can use ibuprofen as needed for pain. Follow-up with primary care physician in 1 week. General: Alert, Oriented x3, Cooperative HEENT: Atraumatic, Normocephalic Neck: Supple, trachea midline, no JVD Lungs: Clear to auscultation, Normal air movement Cardiovascular: Regular rate, Regular Rhythm, Normal S1, Normal S2, No murmurs Abdomen: Bowel Sounds Present, nondistended, nontender Extremities: No edema Skin: No rashes Musculoskeletal: No Tenderness to Palpation of Joints or Extremities Neurological: Neuro grossly intact Psych/Mental Status: Normal Affect, Appropriate Patient seen and examined prior to discharge. Physical assessment as noted above. Patient is stable for discharge with follow up recommendations as noted above. This patient was seen by BHUMIKA Fowler under the supervision of Dr. Macias. Patient Problems: Active and Suspected Problems Chest pain (Acute) - Physical Exam Vital Signs Temp Pulse Resp BP Pulse Ox 98.1 F 84 16 111/69 94 10/17/18 06:32 10/17/18 11:17 10/17/18 06:32 10/17/18 06:32 10/17/18 06:32 Oxygen Flow Rate (L/min) 2 Oxygen Delivery Method Room Air Weight: 212 lb 8.41 oz Body Mass Index (BMI) 29.6 Intake and Output for Last 24 Hours Intake Total 300 / 300 Output Total 0 / 0 Balance 300 / 300 Laboratory Tests Past 24 Hrs WBC 12.8 H RBC 5.51 Hgb 16.3 Hct 47.3 MCV 85.8 WBC RBC Discharge Diet: Carb Control Diet Discharge Activity: Return to Normal Activity Call your doctor if you observe: Shortness of breath, Dizziness, Fainting spells, Chest pain Home Medications: Medications to take at Discharge Metformin(XR) [Glucophage Xr] 500 mg PO DAILY #30 tablet 10/17/18 Following Prescrptions Were Given to Patient: Metformin(XR) [Glucophage Xr] 500 mg PO DAILY #30 tablet Please Follow Up With: Dana Patel MD When: 1 Week Disposition: Home Minutes spent on discharge:: 35 Patient Condition:: Stable Medical Necessity - Tobacco Use Smoking Status: Never smoker Tobacco Use: Chew Meaningful Use Info Meaningful Use Diagnoses (Choose all that apply): None applicable <Julian Macias - Last Filed: 10/17/18 15:00> Hospital Course and Treatment Operations: None Procedures: Stress test Summary of Care Provided: Patient seen and examined independently. Data reviewed. I agree with the above note by the nurse practitioner. The patient is a 43 year old M presents with left-sided chest pain. Chest pain was worse with deep inspirations and cough. Patient denied any recent trauma nor lifting any heavy objects. Pain was reproducible on exam. Patient underwent stress test that was normal as well as a d-dimer was normal. Is feeling of the patient's chest pain was musculoskeletal in etiology. Patient will be discharged home. [] - Physical Exam General: Alert, No apparent distress HEENT: Atraumatic, Normocephalic Oral: Moist Mucosa, No Gingival or Mucosal Lesions/ Ulcerations Musculoskeletal: - - reproducible left chest wall tenderness. Vital Signs Temp Pulse Resp BP Pulse Ox 36.7 C 78 16 124/84 H 94 10/17/18 12:32 10/17/18 12:32 10/17/18 12:32 10/17/18 12:32 10/17/18 12:32 Oxygen Flow Rate (L/min) 2 Oxygen Delivery Method Room Air Weight: 96.4 kg Body Mass Index (BMI) 29.6 Intake and Output for Last 24 Hours Intake Total 300 / 300 Output Total 0 / 0 Balance 300 / 300 Laboratory Tests Past 24 Hrs WBC 12.8 H RBC 5.51 Hgb 16.3 Hct 47.3 MCV 85.8 WBC RBC Discharge Diet: Carb Control Diet Discharge Activity: Return to Normal Activity Call your doctor if you observe: Shortness of breath, Dizziness, Fainting spells, Chest pain Disposition: Home Patient Condition:: Stable Meaningful Use Info Meaningful Use Diagnoses (Choose all that apply): None applicable Code Visit OBSV POLO: [id number] Observation care discharge 10/17/18 1416 <Electronically signed by Charisma NUNEZC> Date Charisma Ponce PROCESS ANALYST-C 10/17/18 1501<Electronically signed by Julian Macias DO> Cosigner Signature (if applicable): Date Julian Macias DO CC: PROCESS ANALYST-C Charisma Ponce; Dana Patel MD; Julian Macias DO Signed STRESS REPORT Observed: 10/17/2018 Status: F Source: [place] 2:32 PM [facility] Cardiovascular Services [address] [place] [address] MR#: [id number] Acct: [id number] Name: SHERWIN SEYMOUR Rep #: [id number] : 1975 43 From: Ganga Jose MD Primary Care: Dana Patel MD Status: ADM KRISTYN Ordering Dr: Sex: Meredith BELL Stress Test Report Date: 10/17/2018 Procedure: Exercise tolerance test/imaging study Indications: Chest pain Consent: Per the patient Procedure: The patient exercised on a Johnny protocol for 7 minutes and 40 seconds completing Stage II and 1 minute and 40 seconds of Stage III achieving a peak heart rate of 162 bpm (91 % predicted maximal heart rate) with a peak blood pressure 164/92 mmHg and a peak MET capacity of 9 METs. The baseline ECG demonstrated sinus rhythm. The peak exercise ECG demonstrated attic/motion artifact with no obvious ECG changes. [There were no cardiac dysrhythmias pretest, during exercise, or recovery]. The functional capacity was considered average. There was [no complaint of chest discomfort during exercise or recovery]. The examination was discontinued secondary to dyspnea. Impression: 1. Technically adequate (percent predicted maximal heart rate greater than 85%) exercise tolerance test 2. Peak exercise ECG with no obvious ECG changes 3. [There were no cardiac dysrhythmias pretest, during exercise, or recovery] 4. Nuclear images pending Myocardial perfusion imaging study: Technique: The patient was injected with 11.1 mCi of technetium 99m Cardiolite and subsequently rest SPECT Cardiolite nuclear imaging was obtained in the horizontal long, vertical long, and short axis views. The patient exercised on a Johnny protocol for 7 minutes and 40 seconds completing Stage II and 1 minute 40 seconds of Stage III achieving a peak heart rate of 162 bpm (91 % predicted maximal heart rate) with a peak blood pressure 164/92 mmHg and a peak MET capacity of 9 METs. The patient was injected with 32.5 mCi of technetium 99m Cardiolite and subsequently stress SPECT Cardiolite nuclear imaging was obtained in the horizontal long, vertical long, and short axis views. A gated Cardiolite study at peak stress was obtained. Interpretation: Rest and stress SPECT Cardiolite nuclear imaging status post realignment, normalization, and attenuation correction, demonstrates [the appearance of relative uniform tracer uptake and myocardial perfusion appearing within normal limits]. [There is end systolic thickening and brightening]. The gated Cardiolite study demonstrates [myocardial thickening and inward wall motion]. The reported LVEF is 83 %. Impression: 1. Rest and stress SPECT Cardiolite nuclear imaging demonstrate [relative uniform tracer uptake and myocardial perfusion appearing within normal limits]. 2. The gated Cardiolite study reports an LVEF of 83 %. This note was generated with iGisticsation software. It may contain incorrect words, spelling, and punctuation that were not noted in checking the note before signing. 10/17/18 1432 <Electronically signed by Ganga Jose MD> Date Ganga Jose MD CC: Dana Patel MD; Julian Macias DO Date Dictated: 10/17/181428 Date Transcribed: 10/17/181428 Liquor Commissioner: PM Signed DISCHARGE INSTRUCTION Observed: 10/17/2018 Status: F Source: SHIR[place] 2:08 PM [facility] Medical Records Department [address] [place] [address] Instructions for Home/Discharge Instructions 10/17/18 1401 MR#: [id number] Acct: [id number] Name: SHERWIN SEYMOUR Rep #: [id number] : 1975 43 From: Charisma BAI PCP: Dana Patel MD Status: ADM KRISTYN ADDENDUM by BHUMIKA Ponce on 10/17/18 at [address] Patel. Follow up in 1 Week. 10/17/18 140 Date Charisma Ponce cc: Dana Patel MD * Signed - Discharge Diagnoses Current Active Problems: Current Active and Chronic Problems Chest pain (Acute) You will use the following diet at home:: Calorie/Carbohydrate Controlled (specify 1200, 1400, etc) Discharge Activity: Return to Normal Activity Call your doctor if you observe: Shortness of breath, Dizziness, Fainting spells, Chest pain Allergies/Adverse Reactions: Allergies No Known Allergies Allergy (Verified 10/17/18 00:12) Medications to take at Discharge Metformin(XR) [Glucophage Xr] 500 mg PO DAILY #30 tablet 10/17/18 The following prescriptions were given: Metformin(XR) [Glucophage Xr] 500 mg PO DAILY #30 tablet Primary Care Physician: Care Physician,No Primary [NON-STAFF] - Please follow up with your Primary Care Physician in: 1 Week Test Results: Test results from this visit will be discussed in further detail at your follow-up appointment, if applicable. Proposed Discharge Date: 10/17/18 10/17/18 140 <Electronically signed by Charisma BAI> Date Charisma BAI CC: Dana Patel MD PROTHROMBIN TIME W/INR Collected: 10/17/2018 Status: F Source: [place] 6:07 AM [facility] TYPE CODE TESTS RESULT OUT OF RANGE REFERENCE UNITS LAB L300.4150 11.7-14.9 SECONDS Normal PROTIME 13.0 LAB L300.4200 Normal INR 1.0 Performed By: #### L300.3900, L300.4310 #### [facility] [address] [place], [place], [address] PARTIAL THROMBOPLAST Collected: 10/17/2018 Status: F Source: OSTRANDER TIME 6:07 AM [facility] TYPE CODE TESTS RESULT OUT OF RANGE REFERENCE UNITS LAB L300.4310 24.1-36.2 Seconds Normal PTT 32.4 Performed By: #### L300.3900, L300.4310 #### [facility] [address] [place], [place], [address] COMPREHENSIVE METABOLIC Collected: 10/17/2018 Status: F Source: OSTRANDER PROFIL 6:07 AM [facility] Order Comment: 'TROP' Serial specimen #1, #2 or #3: 3 'TROP' Serial specimen #1, #2, #3, or #4: 3 TYPE CODE TESTS RESULT OUT OF RANGE REFERENCE UNITS LAB L501.0100 74-106 mg/dL Normal GLU 86 Result Comment: Please note revised GLUCOSE reference range effective 2017. LAB L501.1000 7-18 mg/dL Normal BUN 7 LAB L501.1100 0.70-1.30 mg/dL Normal CREAT,SERUM 0.85 Result Comment: The validity of the calculated GFR AND GFRAA in patients over 70 years has not been determined. Clinical correlation is essential. LAB L501.1110 >60 mL/min Normal EST GFR 105 Result Comment: Non- GFR Calc LAB L501.1115 >60 mL/min Normal EST GFR - AA 127 Result Comment: GFR Calc LAB L501.1255 ml/min Normal Estimated CRCL 120.58 LAB L501.1300 10-20 RATIO Low BUN/CRE 8.3 LAB L501.1500 6.4-8. g/dL 2 T PROT Normal 6.7 LAB L501.1800 3.2-5. g/dL 0 ALB Normal 3.4 LAB L501.1950 2.2-4. g/dL 2 GLOB Normal 3.3 LAB L501.2000 0.9-2. RATIO 4 A/G Normal 1.0 LAB L501.2200 8.5-10 mg/dL .1 CA Normal 8.6 LAB L501.4100 15-37 U/L AST Normal 17 LAB L501.4305 45-117 U/L ALK P Normal 116 LAB L501.4405 16-61 U/L ALT Normal 38 LAB L501.4600 0.20-1 mg/dL .00 T BILI Normal 0.40 LAB L501.5300 136-14 mmol/L High 5 NA 146 LAB L501.5600 3.5-5. mmol/L 1 K Normal 3.7 LAB L501.5900 98-107 mmol/L High CL 109 LAB L501.6100 21.0-3 mmol/L 2.0 CO2 Normal 27.0 LAB L501.6200 5-15 GAP Normal 10 Performed By: #### L500.4050, L500.4100, L501.4010 #### [facility] [address] [place], [address] LIPID PROFILE Collected: 10/17/2018 Status: F Source: O[place] 6:07 AM [facility] Order Comment: 'TROP' Serial specimen #1, #2 or #3: 3 'TROP' Serial specimen #1, #2, #3, or #4: 3 TYPE CODE TESTS RESULT OUT OF RANGE REFERENCE UNITS LAB L501.4900 200 mg/dL Normal CHOL 178 Result Comment: <200 mg/dL Desirable 200-240 mg/dL Borderline >240 mg/dL High Risk LAB L501.5000 mg/dL Normal TRIG 137 Result Comment: The drugs N-Acetylcysteine and Metamizole may falsely depress this assay. Serum Triglycerides Reference Interval Normal <150 mg/dL Borderline high 150 - 199 mg/dL High 200 - 499 mg/dL Very High > or = 500 mg/dL LAB L501.6400 mg/dL Low HDL 27 Result Comment: The drugs N-Acetylcysteine and Metamizole may falsely depress this assay. Reference Range HDL <40 mg/dL Low HDL Cholesterol HDL >or= 60 mg/dL High HDL Cholesterol LAB L501.6500 0-130 mg/dL Normal LDL 124 LAB L501.6600 5-40 mg/dL Normal VLDL 27 Performed By: #### L500.4050, L500.4100, L501.4010 #### [facility] [address] [place], [address] TROPONIN-I Collected: 10/17/2018 Status: F Source: [place] 6:07 AM [facility] Order Comment: 'TROP' Serial specimen #1, #2 or #3: 3 'TROP' Serial specimen #1, #2, #3, or #4: 3 TYPE CODE TESTS RESULT OUT OF RANGE REFERENCE UNITS LAB L501.4010 <0.045 ng/mL Normal < 0.015 TROPONIN-I Result Comment: TROPONIN-I EXPECTED VALUES <0.045 Negative 0.045 - 0.590 Consistent with Cardiac Damage > OR = 0.600 Critical Value Not every elevated troponin is indicative of LA. These values should be used with clinical judgement in examining the patient's clinical picture for diagnosis. To establish a diagnosis of LA versus myocardial injury, there must be a demonstrated rise and/or fall in the troponin values, in addition to ischemic symptoms, EKG changes, new regional wall motion abnormality, and/or angiographical evidence. PLEASE NOTE: REFERENCE RANGES EDITED 18 Performed By: #### L500.4050, L500.4100, L501.4010 #### [facility] [address] [place], [address] HEMOGLOBIN A1C Collected: 10/17/2018 Status: F Source: [place] 6:07 AM [facility] TYPE CODE TESTS RESULT OUT OF RANGE REFERENCE UNITS LAB L501.9985 4.2-6.3 % High HGB A1C 7.5 Performed By: #### L501.9985 #### [facility] [address] [place], [address] TROPONIN-I Collected: 10/17/2018 Status: F Source: [place] 3:20 AM [facility] Order Comment: 'TROP' Serial specimen #1, #2 or #3: 2 TYPE CODE TESTS RESULT OUT OF RANGE REFERENCE UNITS LAB L501.4010 <0.045 ng/mL Normal < 0.015 TROPONIN-I Result Comment: TROPONIN-I EXPECTED VALUES <0.045 Negative 0.045 - 0.590 Consistent with Cardiac Damage > OR = 0.600 Critical Value Not every elevated troponin is indicative of LA. These values should be used with clinical judgement in examining the patient's clinical picture for diagnosis. To establish a diagnosis of LA versus myocardial injury, there must be a demonstrated rise and/or fall in the troponin values, in addition to ischemic symptoms, EKG changes, new regional wall motion abnormality, and/or angiographical evidence. PLEASE NOTE: REFERENCE RANGES EDITED 18 Performed By: #### L501.4010 #### [facility] [address] [place], [address] EMERGENCY DEPARTMENT Observed: 10/17/2018 Status: F Source: OSTRANDER SUMMARY 2:02 AM [facility] Medical Records Department [address] [place] [address] Emergency Department Summary 10/17/18 0023 MR#: [id number] Acct: [id number] Name: SHERWIN SEYMOUR Rep #: [id number] : 1975 43 From: Lindy Samaniego MD PCP: Dana Patel MD Status: ADM KRISTYN - ER Visit Summary Date of Service: 10/17/18 Chief Complaint: Chest pain History of Present Illness: The patient is a 43 M presenting with chest pain. Patient states this started last night. He has had intermittent waxing and waning chest pain today. It is associated with shortness of breath. He has had a mild cough. He denies nausea or vomiting. Denies diaphoresis. He did have travel to both [place] and [place] within the last 2 weeks. He denies other PE/DVT risk factors. He states the pain worsened with exertion today. He has a family history of early heart disease. Denies other CAD risk factors. Physical Examination: Vitals are stable. Patient is afebrile. Alert no acute distress. HEENT exam is unremarkable. Neck is supple. Lungs are clear and equal bilaterally. Heart is regular rate and rhythm. Abdomen is soft nontender nondistended. Extremities are unremarkable. Skin is warm and dry. No focal neurologic deficit. Remainder of exam is unremarkable. Emergency Department Course and Treatment: Patient was given aspirin on arrival. He was given morphine Zofran IV. EKG sinus tachycardia rate of 112. CBC shows white count 12.8. Chemistries show glucose 243. Troponin is negative. D-dimer negative. Chest xray shows limited expiratory phase exam with bibasilar hypoaeration and atelectatic change. No vascular congestion or pulmonary edema identified. Gas-filled stomach. Patient had exertional chest pain. He is pain-free on reevaluation. Discussed with the hospitalist for observation. Disposition: Observation Impression: Chest pain This note was generated with iGisticsation software. It may contain incorrect words, spelling, and punctuation that were not noted in review of the chart prior to signing ED Disposition - Plan for ED Patient: Chief Complaint: Chest Pain What to do if you have Problems For any increased pain, shortness of breath, bleeding, nausea or vomiting, chest pain, or any unexpected problems, contact your Primary Care Provider. Call [facility] ([phone]) or report to the closest Emergency Room. Call 911 if necessary. 10/17/18 0202 <Electronically signed by Lindy Samaniego MD> Date Lindy Samaniego MD Cosigner Signature (If Indicated): Date CC: Dana Patel MD HISTORY AND PHYSICAL Observed: 10/17/2018 Status: F Source: OSTRANDER EXAM 1:40 AM [facility] Medical Records Department [address] [place] [address] History and Physical 10/17/18 0132 MR#: [id number] Acct: [id number] Name: SHERWIN SEYMOUR Rep #: [id number] : 1975 43 From: Ganga Groves MD PCP: Dana Patel MD Status: REG ER Y Location: ED Problem List (1) Chest pain Status: Acute Qualifiers: Chest pain type: unspecified Qualified Code(s): R07.9 - Chest pain, unspecified History of Present Illness Date of Admission: 10/17/18 Chief Complaint: chest pain The patient is a 43 year old male who presents to the ER with chest pain. This occurred last evening when he was going to bed and the pain was on the left side of his chest and did not radiate anywhere. The pain is not reproducible and is made worse with deep inspiration. He does feel short of breath but denies nausea and or vomiting. The patient has travelled in the past two weeks however, D-Dimer is negative at this time. The pain has been made worse with exertion. He has a family history of heart disease (paternal). He denies other coronary risk factors but admits he does not follow with a PCP. Past Medical History Allergies No Known Allergies Allergy (Verified 10/17/18 00:12) Home Medications: Ambulatory Orders Medication Instructions Recorded NK 10/17/18 Smoking Status: Never smoker - *Family History Paternal History Items: Heart Disease Review of Systems Constitutional: Denies: Chills, Fever, Weight Change HEENT: Denies: Head Aches, Sinus Congestion, Sinus Drainage Cardiovascular: Reports: Chest Pain. Denies: Palpitations Respiratory: Reports: Shortness of Breath. Denies: Cough, Shortness of breath at rest, Sputum production Gastrointestinal: Denies: Abdominal Pain, Nausea, Vomiting Genitourinary: Denies: Dysuria Musculoskeletal: Denies: Joint Pain, Joint Tenderness Skin: Denies: Rash, Wounds Neurological: Denies: Numbness, Tingling, Focal weakness Psychiatric: Denies: Anxiety, Depression, Homicidal Ideations, Suicidal Ideations Hematologic/ Lymphatic: Denies: Easy Bruising, Easy Bleeding VTE Information - Inpt Only VTE Present on Admission: No VTE Mechan Device Prophylaxis: None VTE Pharm Prophylaxis ordered?: No Patient Problems: Active and Suspected Problems Chest pain (Acute) - Physical Exam General: Alert, Oriented x3, Cooperative HEENT: Atraumatic, Normocephalic Neck: Supple Lungs: Clear to auscultation, Normal air movement Cardiovascular: Regular rate, Regular Rhythm, Normal S1, Normal S2, No murmurs Abdomen: Bowel Sounds Present Extremities: No edema Skin: No rashes Musculoskeletal: No Tenderness to Palpation of Joints or Extremities Neurological: Neuro grossly intact Psych/Mental Status: Normal Affect, Appropriate Vital Signs Temp Pulse Resp BP Pulse Ox 98.2 F 97 20 H 139/101 H 97 10/17/18 00:08 10/17/18 01:08 10/17/18 01:08 10/17/18 01:08 10/17/18 01:08 Oxygen Flow Rate (L/min) 2 Oxygen Delivery Method Nasal Cannula Weight: 219 lb 12.814 oz Body Mass Index (BMI) 30.7 Laboratory Tests Past 24 Hrs Assessment/Plan All Active Problems Chest pain (Acute) Plan 1. Chest Pain - admit to PCU for observation, cycle cardiac enzyme, morphine 2mg IV q 2 hrs prn, oxygen prn, nitroglycerin prn and aspirin per routine. Plan nuclear exercise stress test in am. 2. DVT prophylaxis- Patient is ambulatory and low risk for DVT with negative D-Dimer at this time therefore no LMWH or SCDs at this time No other complaints at this time. Consider other etiologies for this pain if stress test is negative Code Visit OBSV E AND M: [id number] Initial observation care L2 10/17/18 0140 <Electronically signed by Ganga Groves MD> Date Ganga Groves MD Cosigner Signature: Date (if applicable) CC: Dana Patel MD; Ganga Groves MD Signed CHEST 1 VIEW Observed: 10/17/2018 Status: F Source: OSTRANDER (PORTABLE) 12:23 AM [facility] Imaging Services [address] [place] [id number] Chest 1 View (Portable) MR#: [id number] Acct: [id number] Name: SHERWIN SEYMOUR Rep #: [id number] : 1975 M 43 From: Mulugeta Hayward MD PCP: Dana Patel MD Status: REG ER Study: Chest 1 View (Portable) Date of Exam: 10/17/18 Exam# [id number] Ordering Dr: Lindy Samaniego MD HISTORY: CHEST PAIN THAT STARTED YESTERDAY.C/O NAUSEA AFTER DRINKING LOTS OF FLUID EXAM: XR Chest 1 View: Portable COMPARISON: CT abdomen and pelvis 02/26/2017 FINDINGS: EKG leads in place. Limited portable exam with expiratory phase. Elevation of the right and left hemidiaphragms with hypoaeration and atelectasis of the lung bases. The heart appears normal in size. Pulmonary vascularity shows no overt congestion. No significant pleural effusion. No pneumothorax. The bony thorax appears intact. Prominent gas-filled stomach. RAD/Chest 1 View (Portable) IMPRESSION: 1. Limited expiratory phase exam with bibasilar hypoaeration and atelectatic change 2. No vascular congestion or pulmonary edema identified. 3. Gas-filled stomach. at 0056 Reported and signed by: Mulugeta Hayward MD Electronically Signed: Mulugeta Hayward, at 0:54 EST Tel , Service support , CC: Lindy Samaniego MD; Dana Patel MD Liquor Commissioner: Signed CBC W/DIFF, AUTOMATED Collected: 10/17/2018 Status: F Source: SHIRA 12:13 AM [facility] TYPE CODE TESTS RESULT OUT OF RANGE REFERENCE UNITS LAB L100.1000 4.4-11.0 K/mm3 High WBC 12.8 LAB L100.1200 4.6-6.2 M/mm3 Normal RBC 5.51 LAB L100.1300 13.0-16.5 g/dl Normal HGB 16.3 LAB L100.1400 40-54 % Normal HCT 47.3 LAB L100.1500 80-94 fL Normal MCV 85.8 LAB L100.1600 27.0-32.0 pg Normal MCH 29.6 LAB L100.1700 32-36 g/gl Normal MCHC 34.5 LAB L100.1810 11.6-14.6 % Normal RDW CV 13.3 LAB L100.1820 35.1-43.9 fl Normal RDW SD 41.9 LAB L100.1900 150-450 K/mm3 Normal PLT 378 LAB L100.2000 6.2-12.0 fl Normal MPV 9.1 LAB L100.2100 47-70 % Normal NEUT% 65.8 LAB L100.2200 19-41 % Normal LY% 23.7 LAB L100.2300 0-10 % Normal MONO% 8.5 LAB L100.2400 0-5 % Normal EO% 1.3 LAB L100.2500 0-1 % Normal BASO% 0.3 LAB L100.2550 0.0-0.9 % Normal IM GRAN % 0.400 Result Comment: IG% - Immature Granulocytes (promyelocytes, myelocytes and metamyelocytes) > 1% indicates that a LEFT SHIFT is Present. LAB L100.2620 2.0-7.7 X10 3/uL High Absolute Neut 8.4 LAB L100.2720 0.83-4.51 X10 3/ul Normal Absolute Lymph 3.03 Performed By: #### L100.0100 #### [facility] [address] [place], [place], [address] BASIC METABOLIC Collected: 10/17/2018 Status: F Source: OSTRANDER PROFILE (BMP) 12:13 AM [facility] TYPE CODE TESTS RESULT OUT OF RANGE REFERENCE UNITS LAB L501.0100 74-106 mg/dL High GLU 243 Result Comment: Glucose result greater than or equal to 200 mg/dL suggests DIABETES MELLITUS per A.D.A. criteria. Please note revised GLUCOSE reference range effective 2017. LAB L501.1000 7-18 mg/dL Normal BUN 7 LAB L501.1100 0.70-1.30 mg/dL Normal CREAT,SERUM 1.01 Result Comment: The validity of the calculated GFR AND GFRAA in patients over 70 years has not been determined. Clinical correlation is essential. LAB L501.1110 >60 mL/min Normal EST GFR 86 Result Comment: Non- GFR Calc LAB L501.1115 >60 mL/min Normal EST GFR - AA 104 Result Comment: GFR Calc LAB L501.1255 ml/min Normal Estimated CRCL 101.48 LAB L501.1300 10-20 RATIO Low BUN/CRE 6.9 LAB L501.2200 8.5-10 mg/dL .1 CA Normal 9.4 LAB L501.5300 136-14 mmol/L 5 NA Normal 140 LAB L501.5600 3.5-5. mmol/L 1 K Normal 3.5 LAB L501.5900 98-107 mmol/L CL Normal 104 LAB L501.6100 21.0-3 mmol/L 2.0 CO2 Normal 29.0 LAB L501.6200 5-15 GAP Normal 7 Performed By: #### L500.2500, L501.4010 #### [facility] [address] [place], [address] TROPONIN-I Collected: 10/17/2018 Status: F Source: OSTRANDER 12:13 AM [facility] TYPE CODE TESTS RESULT OUT OF RANGE REFERENCE UNITS LAB L501.4010 <0.045 ng/mL Normal < 0.015 TROPONIN-I Result Comment: TROPONIN-I EXPECTED VALUES <0.045 Negative 0.045 - 0.590 Consistent with Cardiac Damage > OR = 0.600 Critical Value Not every elevated troponin is indicative of LA. These values should be used with clinical judgement in examining the patient's clinical picture for diagnosis. To establish a diagnosis of LA versus myocardial injury, there must be a demonstrated rise and/or fall in the troponin values, in addition to ischemic symptoms, EKG changes, new regional wall motion abnormality, and/or angiographical evidence. PLEASE NOTE: REFERENCE RANGES EDITED 18 Performed By: #### L500.2500, L501.4010 #### [facility] [address] [place], [address] D-DIMER QUANTITATIVE Collected: 10/17/2018 Status: F Source: OSTRANDER (DVT/PE) 12:13 AM [facility] TYPE CODE TESTS RESULT OUT OF RANGE REFERENCE UNITS LAB L300.8000 0.27-0.49 FEU/ug/m Low D-DIMER < 0.27 QUANT Result Comment: NORMAL D-Dimer level (<0.50) indicates no DVT or PE. Performed By: #### L300.8000 #### [facility] [address] [place], [place], [address] COMP METABOLIC PANEL Collected: 11/29/2017 Status: F Source: [place] 3:45 PM [facility] REPOSITORY TYPE CODE TESTS RESULT OUT OF REFERENCE UNITS RANGE LAB TP 6.3-8.0 g/dL Protein, Total 7.6 LAB ALB 3.9-4.9 g/dL Albumin 4.5 LAB CA 8.5-10.2 mg/dL Calcium, Total 9.7 LAB TBIL 0.2-1.3 mg/dL Bilirubin, Total 0.5 LAB ALKP 32-117 U/L Alkaline Phosphatase 80 LAB AST 13-35 U/L AST 26 LAB GLU 74-99 mg/dL Low Glucose 73 Result Comment: The [place] [employer] (ADA) provides guidance for cutoff values for fasting glucose and random glucose. The ADA defines fasting as no caloric intake for at least 8 hours. Fas ting plasma glucose results between 100 to 125 mg/dL indicate increased risk for diabetes (prediabetes). Fasting plasma glucose results greater than or equal to 126 mg/dL meet the criteria for diagnosis of diabetes. In the absence of unequivocal hyperglycemia, results should be confirmed by repeat testing. In a patient with classic symptoms of hyperglycemia or hyperglycemic crisis, random plasma glucose results greater than or equal to 200 mg/dL meet the criteria for diagnosis of diabetes. Reference: Standards of Medical Care in Diabetes 2016, [place] [employer]. Diabetes Care. 2016.39(Suppl 1). LAB BUN 7-21 mg/dL BUN Low 5 LAB CRET 0.58-0.96 mg/dL Creatinine 0.89 LAB NA 136-144 mmol/L Sodium 139 LAB K 3.7-5.1 mmol/L Potassium 4.0 LAB CL 97-105 mmol/L Chloride 101 LAB CO2 22-30 mmol/L CO2 24 LAB AGAP 9-18 mmol/L Anion Gap 14 LAB ALT 7-38 U/L ALT 33 LAB GFRAA eGFR- Amer. >60 LAB GFRNAA . eGFR-All Other Races >60 Result Comment: eGFR (Estimated GFR) Units of measure: mL/min/1.73 meters squared eGFR is derived from the reexpressed MDRD Study equation using the following parameters: serum creatinine, age, gender and race. The creatinine assay has been calibrated to be traceable to IDMS. An eGFR <60 mL/min/1.73m2 for >3 months is consistent with chronic kidney disease. Refer to KDOQI guidelines for clinical interpretation. In patients with unstable renal function, e.g. those with acute kidney injury, the eGFR may not accurately reflect actual GFR. Performed By: #### CMP, CBCDIF #### [facility] [address] [address] CBC AND DIFFERENTIAL Collected: 11/29/2017 Status: F Source: [place] 3:45 PM [facility] REPOSITORY TYPE CODE TESTS RESULT OUT OF REFERENCE UNITS RANGE LAB WBC 3.70-11.00 k/uL WBC 8.68 LAB RBC 3.90-5.20 m/uL RBC High 5.36 LAB HGB 11.5-15.5 g/dL Hemoglobin 15.3 LAB HCT 36.0-46.0 % High Hematocrit 47.2 LAB MCV 80.0-100.0 fL MCV 88.1 LAB MCH 26.0-34.0 pG MCH 28.5 LAB MCHC 30.5-36.0 g/dL MCHC 32.4 LAB RDWCV 11.5-15.0 % RDW-CV 13.5 LAB PLTCT 150-400 k/uL Platelet Count 306 LAB MPV 9.0-12.7 fL MPV 9.1 LAB ANEUT % Neut% 58.5 LAB AANEUT 1.45-7.50 k/uL Abs Neut 5.08 LAB ALYMP % Lymph% 30.0 LAB AALYMP 1.00-4.00 k/uL Abs Lymph 2.60 LAB AMONO % Mccurtain% 8.2 LAB AAMONO <0.87 k/uL Abs [place]urt[place] 0.71 LAB AEOS % Eosin% 2.5 LAB AAEOS <0.46 k/uL Abs Eosin 0.22 LAB ABASO % Baso% 0.8 LAB AABASO <0.11 k/uL Abs Baso 0.07 LAB AUNRBC 0 /100 WBC NRBCs 0.0 LAB ABNRBC <0.01 k/uL Absolute nRBC <0.01 LAB DTYP DTYPE Auto Diff Performed By: #### CMP, CBCDIF #### [facility] [address] [place] [id number] URINALYSIS WITH Collected: 11/29/2017 Status: F Source: [facility] 3:38 PM [facility] REPOSITORY TYPE CODE TESTS RESULT OUT OF REFERENCE UNITS RANGE LAB UCOL Yellow Color Yellow LAB [facility] Clear Clarity Clear LAB UGLUC Negative mg/dL Glucose, Urine Negative LAB UBIL Negative Bilirubin, Urine Negative LAB UKET Negative Ketones, Urine Negative LAB USPG 1.005-1.030 Specific Venus, Ur 1.006 LAB UHGB Negative Hemoglobin/Blood, Negative Ur LAB UPH 4.5-8.0 pH 7.0 LAB UPROT Negative mg/dL Protein, Urine Negative LAB UUROB Normal Urobilinogen Normal LAB UNITR Negative Nitrites Negative LAB ULKEST Negative Leukest Negative LAB UCOM Comments SEE COMMENT Result Comment: N/A LAB UMCOM Urine SEE Yinka Comment COMMENT Result Comment: N/A LAB UWBC 0-5 /HPF WBC 0-5 LAB URBC 0-3 /HPF RBC 0-3 LAB UEPI /HPF Epithelial SEE Cells COMMENT Result Comment: Few Squamous Epithelial Cells Performed By: #### UAWMIC #### [facility] [address] [place], [place] [address] PROGRESS Observed: 11/29/2017 Status: COMPLETED Source: [place] 1:14 PM [facility] REPOSITORY HNO ID: [id number] Author: Janeen Smith) Podlogar Service: (none) Author Type: Nurse Practitioner Type: Progress Notes Filed: 11/29/2017 1:43 PM Note Text: 11/29/2017 Patient presents with: Hematuria: off and on for 6-7 months had a kidney stone SUBJECTIVE: This is a 42 year old that is here today for above. About 6-7 months had kidney stones. Seen In [facility] ER at that time and per patient he was to see urologist and have surgery but he never did. Today he in concerned because when he gets up in the morning urine is real dark. Denies fever, chills, dysuria, frequency, urgency, decreased stream,hesistancy, straining to void, incontinence, or abdominal pain. Positive for right back pain that occurs on/off. No pain at this time. No hx of smoking. Not seeing blood in urine but it is real dark in morning. Has pain on/off 4/10 right flank. Not having pain right now. Denies fever, chill, frequency, urgency , decreased stream abdominal pain. Does not take any medications. No past medical history on file. ALLERGIES Review of patient's allergies indicates no known allergies. MEDICATIONS No current outpatient prescriptions on file. No current facility-administered medications for this visit. Medications and allergies reviewed by this provider. SOCIAL HISTORY Social History Marital status: Spouse name: Years of education: Number of children: Social History Main Topics Smoking status: Never Smoker Smokeless status: Current User Types: Chew Alcohol use: Yes 9.0 oz/week 3 Martini/Manhattan Drinks per week Sexual activity: Yes Partners with: Female REVIEW OF SYSTEMS GENERAL: No weight loss, malaise or fevers : See HPI All other reviewed and negative other than HPI. OBJECTIVE: BP 100/58 (BP Site: Right Arm, BP Position: Sitting, BP Cuff Size: Regular Adult) Pulse 64 Resp 18 Wt 92.6 kg (204 lb 2.7 oz). Vital signs reviewed by this provider. APPEARANCE Well appearing, alert, in no acute distress, well-hydrated, well nourished. EYES PERRLA, conjunctiva and sclera normal. BACK: No CVA tenderness HEART RRR with normal S1 and S2, no murmurs, no gallops, no JVD appreciated LUNG clear to auscultation ABDOMEN bowel sounds normoactive, no bruits, soft, non-tender, non-distended, without organomegaly or palpable masses, no tenderness to palpation ASSESSMENT/PLAN: 1. Dark yellow-colored urine - ICD9: 788.99, ICD10: R39.89 - consider UTI, prostatitis, or kidney stones - patient unable to give urine sample, wants to come back around 3 pm to give - no red flag exam findings - red flag symptoms discussed- verbalizes understanding - CBC + DIFF - COMP METABOLIC PANEL - URINALYSIS WITH MICROSCOPIC - Follow-up pending lab and urine results- Consider CT or urology consult - keep establish care appointment with DR. Patel in [facility] Prescription instructions reviewed with patient as applicable. Patient advised if symptoms do not improve or if symptoms worsen sooner, to contact their primary care physician. Potential red flag symptoms discussed with the patient. Reviewed appropriate action plan to take if red flag symptoms occur. Patient agreeable to treatment plan. CNOV Observed: 11/29/2017 Status: COMPLETED Source: [place] 1:00 PM [facility] REPOSITORY [facility] SHERWIN SEYMOUR ([id number]) 1975 F Date Time Provider Department 11/29/17 1:00 PM JANEEN PERRY (MIRLANDE ELMORE During your visit today, we recorded the following information about you: Pulse Respiration Blood pressure Weight 64/minute 18/minute 100/58 92.6 kg Janeen Perry CNP 11/29/2017 1:43 PM Signed 11/29/2017 Patient presents with: Hematuria: off and on for 6-7 months had a kidney stone SUBJECTIVE: This is a 42 year old that is here today for above. About 6-7 months had kidney stones. Seen In [facility] ER at that time and per patient he was to see urologist and have surgery but he never did. Today he in concerned because when he gets up in the morning urine is ANDquot;real dark.ANDquot; Denies fever, chills, dysuria, frequency, urgency, decreased stream,hesistancy, straining to void, incontinence, or abdominal pain. Positive for right back pain that occurs on/off. No pain at this time. No hx of smoking. Not seeing blood in urine but it is ANDquot;real darkANDquot; in morning. Has pain on/off 4/10 right flank. Not having pain right now. Denies fever, chill, frequency, urgency , decreased stream abdominal pain. Does not take any medications. No past medical history on file. ALLERGIES Review of patient's allergies indicates no known allergies. MEDICATIONS No current outpatient prescriptions on file. No current facility-administered medications for this visit. Medications and allergies reviewed by this provider. SOCIAL HISTORY Social History Marital status: Spouse name: Years of education: Number of children: Social History Main Topics Smoking status: Never Smoker Smokeless status: Current User Types: Chew Alcohol use: Yes 9.0 oz/week 3 Martini/Manhattan Drinks per week Sexual activity: Yes Partners with: Female REVIEW OF SYSTEMS GENERAL: No weight loss, malaise or fevers : See HPI All other reviewed and negative other than HPI. OBJECTIVE: BP 100/58 (BP Site: Right Arm, BP Position: Sitting, BP Cuff Size: Regular Adult) Pulse 64 Resp 18 Wt 92.6 kg (204 lb 2.7 oz). Vital signs reviewed by this provider. APPEARANCE Well appearing, alert, in no acute distress, well- hydrated, well nourished. EYES PERRLA, conjunctiva and sclera normal. BACK: No CVA tenderness HEART RRR with normal S1 and S2, no murmurs, no gallops, no JVD appreciated LUNG clear to auscultation ABDOMEN bowel sounds normoactive, no bruits, soft, non-tender, non-distended, without organomegaly or palpable masses, no tenderness to palpation ASSESSMENT/PLAN: 1. Dark yellow-colored urine - ICD9: 788.99, ICD10: R39.89 - consider UTI, prostatitis, or kidney stones - patient unable to give urine sample, wants to come back around 3 pm to give - no red flag exam findings - red flag symptoms discussed- verbalizes understanding - CBC + DIFF - COMP METABOLIC PANEL - URINALYSIS WITH MICROSCOPIC - Follow-up pending lab and urine results- Consider CT or urology consult - keep establish care appointment with DR. Patel in March Janeen Perry CNP Prescription instructions reviewed with patient as applicable. Patient advised if symptoms do not improve or if symptoms worsen sooner, to contact their primary care physician. Potential red flag symptoms discussed with the patient. Reviewed appropriate action plan to take if red flag symptoms occur. Patient agreeable to treatment plan. Referring Provider: SELF [[id number]] Allergies As of Date: 11/29/2017 Noted Allergy Reaction TREE POLLEN (TREES) 11/29/2017 9 - Itching Date Reviewed: 11/29/2017 Reviewed by: Janeen Smith) Podlogar - Fully Assessed Reason for Visit: Hematuria [335] Cmt: off and on for 6-7 months had a kidney stone Primary Visit Diagnosis:Dark yellow-colored urine [R39.89] Order(s):CBC + DIFF [SQCBCDIF] Order #: [id number] FUTURE COMP METABOLIC PANEL [SQCMP] Order #: [id number] FUTURE URINALYSIS WITH MICROSCOPIC [SQUAWMIC] Order #: [id number] Problem List As Of Date: 11/29/2017 (None) Follow-up and Disposition History Recorded Encounter Status:Closed by JANEEN PERRY CNP on 11/29/17 ALLERGIES ALLERGIES DATE TYPE / CODE NAME / CODE REACTION SEVERITY SOURCE 10/17/2018 Drug No Known Unknown [facility] Allergy/4160 Allergies/F00 [facility] 63876(SNOMED [id number](RXNOR Repository CT) M) 11/29/2017 Environ/4201 TREES ITCHING [facility] [address](SNOMED [address] [place]) Repository ENCOUNTERS ENCOUNTERS ADMIT/DISCHARGE ACCOUNT ADMITTING ENCOUNTER LOCATION SOURCE NUMBER CLASS 10/20/2018/10/20/20 [id number] Ambulatory [address] Repository 10/18/2018/10/19/20 [id number] Ambulatory [address] Repository 10/17/2018 [id number] Ambulatory BMSBuilding:W [facility] Repository 10/17/2018/10/17/20 [id number] [place] [facility] [address] ing:PCURoom: Repository [id number]: 1 10/17/2018 [id number] Ambulatory BMSBuilding:B [facility] Repository 11/29/2017/11/29/19 [id number] Ambulatory [address] Repository 11/29/2017/11/29/19 [id number] Ambulatory [address] Repository PAYERS PAYERS ENCOUNTER GUARANTOR PAYER SUBSCRIBER SOURCE 10/17/2018 SHERWIN Primary NOT GIVENUNK [facility] [id number] Insurance:SELF PAY [place], [place] Number: Effective Repository [id number]: () Date:2018-10-1793 () 10/17/2018 SHERWIN Primary NOT GIVENUNK [place] [id number] E Insurance:SELF PAY [place], [place] Number: Effective Repository [id number]: () Date:2018-10-17 (HP) 10/17/2018 SHERWIN Primary NOT GIVENUNK [place] [id number] E Insurance:SELF PAY [place], [place] Number: Effective Repository [id number]: () Date:2018-10-1727 ()
== END 2018-10-17 14:02 | disposition home or self-care (01) ==
LOC: ED 00:54 → PCU 02:04
PROVIDERS: Admitting Provider Family Medicine; Emergency Provider Emergency Medicine; Family Provider Internal Medicine; PCP Internal Medicine
DX: R07.89 Other chest pain (principal); R06.02 Shortness of breath; R00.0 Tachycardia, unspecified; E11.9 Type 2 diabetes mellitus without complications; F17.220 Nicotine dependence, chewing tobacco, uncomplicated
CPT/HCPCS: 36415; 71045; 78452; 80048; 80053; 80061; 83036; 84484; 85025; 85379; 85610; 85730; 93005; 93017; 96361; 96372; 96374; 96375; 99218; 99285; A9500; A4216; G0378; J2405

== ENCOUNTER 2020-02-15 20:03 | Emergency (ER) | payer OTHER, SELFPAY ==
[2018-10-17 02:18] VITALS: BMI 29.6
[2020-02-15 20:03] VITALS: BP 91/76; PULSE 94; RESP 16; TEMP 37.2; O2SAT 96; BMI 29.2
[2020-02-15 20:12] VITALS: BP 119/83; PULSE 88; RESP 35; TEMP 37; O2SAT 95
[2020-02-15] MEDS: 0.9% Normal Saline 1,000 ML 1000 ML IV (20:30)
--- NOTE | 2020-02-15 20:30 | ED.VIS.GEN ---
History of Present Illness Chief Complaint: Fever Detail of Chief Complaint: Fever, cough, diarrhea Informant: Patient Onset: Weeks - 2 weeks Context: Gradual Onset Current Severity: Moderate Maximum Severity: Moderate Narrative: She presents with a 2-week history of fever, cough. He was initially given amoxicillin for his illness but developed diarrhea. He stopped amoxicillin after 5 days but yet continues to have diarrhea. He states he is not been able to eat in quite some time. He continues to have fever and states his temperature was 102.0 prior to coming to the emergency room tonight. He has not taken anything for fever since 4 AM this morning. Patient did state that he had Covid 19 testing done at the [facility] today but does not yet have results. - Past Medical History (1) Diabetes Status: Chronic Past Medical History - Allergies and Home Meds Allergies/Adverse Reactions: Allergies No Known Allergies Allergy (Verified 02/15/20 20:05) Primary Care Physician: Dana Remy MD [Primary Care Provider] - Prior records reviewed: Yes Smoking Status: Never smoker - Family History Paternal Family History: Reports: Heart Disease Review of Systems General: Reports: Fever Eyes: Denies: Visual changes - bilaterally ENT: Denies: Bilateral ear pain Cardiovascular: Denies: Chest pain Respiratory: Reports: Cough. Denies: Sputum Gastrointestinal: Reports: Nausea, Diarrhea. Denies: Vomiting Musculoskeletal: Denies: Swelling, Extremity Pain Skin: Denies: Rash Neurological: Reports: Weakness. Denies: Headache Allergy: Reports: Uticaria Physical Exam Vital Signs/Narrative: Vital Signs Temp Pulse Resp BP Pulse Ox 02/15/20 20:12 98.6 F 88 35 H 119/83 H 95 02/15/20 20:03 98.9 F 94 16 91/76 96 Inital Vital Signs reviewed: Yes General: Well nourished, Well developed Head: Normocephalic Neck: Supple Cardiovascular: Regular rate, Regular rhythm Respiratory: No distress, CTA bilaterally Abdomen: Soft, Nontender, Hypoactive bowel sounds Extremities: Nontender Skin: Normal color, No rash Neurological: Alert, Oriented x3 Psychological: Normal affect Diagnostic/Tx/Re-eval Impressions Chest X-Ray 02/15/20 20:40 IMPRESSION: Findings consistent with bilateral viral pneumonitis. Recommend clinical correlation to exclude martin virus infection. CT may be helpful for further evaluation if indicated Electronically Signed: Abraham Lopez MD at 20:58 EDT , Service support , 02/15/20 20:40 Chest 1 View (Portable) [RAD] Stat Laboratory Results 02/15/20 02/15/20 02/15/20 20:35 20:35 20:35 WBC 9.1 RBC 5.34 Hgb 15.0 Hct 44.9 MCV 84.1 MCH 28.1 MCHC 33.4 RDW Std Deviation 38.8 RDW Coeff of Anum 12.6 Plt Count 318 MPV 9.4 Immature Gran % (Auto) 0.400 Neut % (Auto) 72.5 H Lymph % (Auto) 19.2 Dane % (Auto) 7.5 Eos % (Auto) 0.3 Baso % (Auto) 0.1 Absolute Neuts (auto) 6.6 Absolute Lymphs (auto) 1.74 Nucleated RBC % 0 Sodium 136 Potassium 3.7 Chloride 102 Carbon Dioxide 27.0 Anion Gap 7 BUN 7 Creatinine 1.01 Estim Creat Clear Calc 99.41 Est GFR (MDRD) Af Amer 103 Est GFR (MDRD) Non-Af 85 BUN/Creatinine Ratio 6.9 L Glucose 110 H Calcium 8.7 Total Bilirubin 0.50 Direct Bilirubin 0.16 AST 34 ALT 33 Alkaline Phosphatase 66 Total Protein 7.6 Albumin 3.6 Globulin 4.0 Urine Color Yellow Urine Clarity Clear Urine pH 6.5 Ur Specific Wayne 1.010 Urine Protein 30 H Urine Glucose (UA) Normal Urine Ketones Negative Urine Occult Blood Negative Urine Nitrite Negative Urine Bilirubin Negative Urine Urobilinogen Normal Ur Leukocyte Esterase Negative Urine RBC 0 SEEN Urine WBC 0 SEEN Ur Squamous Epith Cells 0 SEEN Urine Bacteria RARE Urine Mucus 0 SEEN - Medical Decision Making Patient was given a liter IV fluids here. I did check clinisync to see if I could obtain his colitis test result but it is not yet available. Patient's vital signs are stable. His O2 sat is 97% on room air. cafeteria monitor is reading his respiratory rate in the 30s however patient is not tachypneic on exam and is breathing comfortably. I did discuss with him that treatment is all still supportive care at this time. Because he has been sick now for the past 2 weeks I suspect that he will start to notice some improvement. He will be given a prescription for some cough medicine to help control cough. He is given return instructions, specifically if he becomes more short of breath, and is given handouts on coronavirus and self isolation/quarantine. ED Disposition - Plan for ED Patient: Disposition: Home or Assisted Living Diagnosis: Viral syndrome, Suspected [place] coronavirus infection Instructions: ED Viral Syndrome Prescriptions: Guaifenesin/Codeine [Robitussin AC] 5 ml PO Q6H PRN PRN #[id number] PRN Reason: Cough Referrals: Dana Remy MD [Primary Care Provider] - 1 Week if not improving
--- NOTE | 2020-02-15 20:40 | RAD_ITS ---
STUDY: X-RAY CHEST REASON FOR EXAM: Male, 45 years old. FEVER, COUGH FOR 12-14 DAYS TECHNIQUE: AP portable COMPARISON: October 17, 2018 FINDINGS: There is less than optimal inspiratory effort. There are areas of interstitial thickening and increased opacity bilaterally which may be consistent with viral pneumonitis. There is no demonstrated pleural abnormality. Normal size heart. Normal mediastinum and pete. Normal visualized pulmonary arteries. Normal visualized aortic arch and descending thoracic aorta. Normal visualized thoracic spine. Normal visualized ribs, clavicles, and shoulders. There is no demonstrated abnormality of the visualized soft tissue structures of the upper abdomen. The interstitial prominence and increased density are new finding since previous study. RAD/Chest 1 View (Portable) IMPRESSION: Findings consistent with bilateral viral pneumonitis. Recommend clinical correlation to exclude martin virus infection. CT may be helpful for further evaluation if indicated Electronically Signed: Abraham Lopez MD at 20:58 EDT , Service support ,
[2020-02-15 20:44] LABS: Mucous, Urine 0 SEEN /hpf (<or=2+); Red Blood Cells-Urine 0 SEEN /hpf (0-5); Squamous Epithelial Cells - UA 0 SEEN /hpf (0-5); White Blood Cells 0 SEEN /hpf (0-5)
[2020-02-15 20:48] LABS: Absolute Lymphocyte Count 1.74 X10^3/uL (0.83-4.51); Absolute Neutrophil Count 6.6 X10^3/uL (2.0-7.7); Basophil# 0.01 X10^3/uL; Basophil% 0.1 % (0-1); Eosinophil# 0.03 X10^3/uL; Eosinophils% 0.3 % (0-5); Hematocrit 44.9 % (40-54); Lymphocyte # 1.74 X10^3/ul (4.0); Lymphocyte % 19.2 % (19-41); Mean Corp Hgb Conc 33.4 g/dL (32-36); Mean Corpuscular Hgb 28.1 pg (27.0-32.0); Mean Corpuscular Volume 84.1 fL (80-94); Mean Platelet Vol. 9.4 fl (6.2-12.0); Monocyte# 0.68 X10^3/uL; Monocyte% 7.5 % (0-10); NRBC Flagged by Analyzer 0 % (0-5); Neutrophil # 6.57 X10^3/uL (2.7-7.7); Neutrophil % 72.5 % (47-70); Platelet Count 318 K/mm3 (150-450); RBC Distribution Width CV 12.6 % (11.6-14.6); RBC Distribution Width SD 38.8 fl (35.1-43.9); Red Blood Count 5.34 M/mm3 (4.6-6.2); White Blood Count 9.1 K/mm3 (4.4-11.0)
[2020-02-15 20:54] LABS: Color, Urine Yellow (Yellow); Glucose, Dipstick Normal (Normal); Ketone-Dipstick Negative (Negative); Leukocyte Esterase-Dipstick Negative /ul (Negative); Nitrite-Dipstick Negative (Negative); Occult Blood-Urine Negative /ul (Negative); Protein-Dipstick 30 mg/dl (Negative); Urine Bilirubin Dipstick Negative (Negative); Urine Clarity Clear (Clear); Urine Urobilinogen Normal (Normal); Urine pH 6.5 (5.0 - 8.0)
[2020-02-15 21:00] LABS: Bacteria RARE /hpf (None Seen)
[2020-02-15 21:07] LABS: AST(SGOT) 34 U/L (15-37); Alanine Aminotransfer ALT/SGPT 33 U/L (16-61); Albumin, Serum 3.6 g/dL (3.2-5.0); Alkaline Phosphatase 66 U/L (45-117); Anion Gap 7 (5-15); BUN 7 mg/dL (7-18); BUN/Creat Ratio 6.9 RATIO (10-20); Bilirubin, Direct 0.16 mg/dL (0.00-0.30); Calcium,Total 8.7 mg/dL (8.5-10.1); Chloride 102 mmol/L (98-107); Creatinine, Serum 1.01 mg/dL (0.70-1.30); EST Glomerular Filtration Rate 85 mL/min (>60); Est Glom Filt Rate - Afr Amer 103 mL/min (>60); Estimated Creatinine Clearance 99.41 ml/min; Glucose 110 mg/dL (74-106); Potassium 3.7 mmol/L (3.5-5.1); Protein, Total 7.6 g/dL (6.4-8.2); Sodium Level 136 mmol/L (136-145)
[2020-02-15 21:12] VITALS: BP 116/85; PULSE 86; RESP 19; TEMP 37.2; O2SAT 96
[2020-02-15 21:41] VITALS: BP 116/82; PULSE 89; RESP 20; O2SAT 98
== END 2020-02-15 21:56 | disposition home or self-care (01) ==
PROVIDERS: Emergency Provider Emergency Medicine; PCP Internal Medicine
DX: B34.9 Viral infection, unspecified (principal); E11.9 Type 2 diabetes mellitus without complications; Z79.84 Long term (current) use of oral hypoglycemic drugs
CPT/HCPCS: 71045; 80048; 80076; 81001; 85025; 96360; 99284; J7030; A4216